=== PATIENT | female | born 1930 | race Caucasian/White ===

== ENCOUNTER 2017-03-24 16:10 | Inpatient (IN) | payer MEDICARE, OTHER ==
[2017-03-24] MEDS ORDERED: Ondansetron 4 MG Tab.DIS PO PRN (17:29)
[2017-03-24] MEDS ORDERED: Sodium Chloride 0.9% 10 ML Syringe FLUSH PRN (17:29)
[2017-03-24] MEDS: Lactated Ringers 1,000 ML IV SCH (18:02)
--- NOTE | 2017-03-24 18:11 | PCM.HP ---
H&P History of Present Illness - General Date of Service: 03/24/17 Admit Problem/Dx: Admission Diagnosis/Problem Admission Diagnosis/Problem Weakness of limb Source of Information: Patient, Family History Limitations: Reports: No limitations - History of Present Illness Initial Comments - Free Text/Narative: This is an 87-year-old female patient presented to our nurse practitioner today for right-sided weakness for about a week. She had a stroke in the past and had right-sided weakness. She fell over a week ago. She states she was walking with her walker in the bedroom. Her walker as wheels. She says her right arm became weak and she fell down and hit the back of her head. She was not evaluated. She denies headaches. Since then her daughter states she is weak and has increasing right leg and arm weakness. She has no nausea, vomiting no chest pain or shortness of breath. She's had a cough for 2 weeks without wheezing. She also has a pressure ulcer on her right ankle that is healing. 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 Cardiovascular History: Reports: Hypertension Gastrointestinal History: Reports: Chronic constipation, Chronic diarrhea Other Gastrointestinal History: alternates between constipation and diarhea bm on admission Genitourinary History: Reports: None PEST LOCATOR History: Reports: Musculoskeletal History: Reports: Other (see below) Other Musculoskeletal History: Weakness d/t Parkinsons right ankle pain due to arthritis small wound on inner right ankle causes pain and tenderness worse later in the day Neurological History: Reports: CVA, Parkinson's Other Neuro History: Hx rheumatic fever when a teenager Psychiatric History: Reports: Depression Immunologic History: Reports: None Oncologic (Cancer) History: Reports: None Dermatologic History: Reports: Other (see below) Other Dermatologic History: Ulcer on R ankle this ulcer present on adm m has had this for many months. ulcer is now a healed scab, it is nopt open but she does complain of pain in the area, no redness - Infectious Disease History Infectious Disease History: Reports: Chicken pox, Measles, Mumps, Rheumatic Fever Other Infectious Disease History: Hepatitis in High School, unknown what type. - Past Surgical History HEENT Surgical History: Reports: None Cardiovascular Surgical History: Reports: None GI Surgical History: Reports: None Neurological Surgical History: Reports: None Musculoskeletal Surgical History: Reports: None Social & Family History - Family History Family Medical History: Noncontributory - Tobacco Use Smoking Status *Q: Never Smoker Second Hand Smoke Exposure: No - Caffeine Use Caffeine Use: Reports: Coffee Other Caffeine Use: 2 cups coffee day - Alcohol Use Days Per Week of Alcohol Use: 4 Number of Drinks Per Day: 1 Total Drinks Per Week: 4 - Recreational Drug Use Recreational Drug Use: No - Living Situation & Occupation Living situation: Reports: Occupation: retired H&P Review of Systems - Review of Systems: Review Of Systems: See Below General: Reports: weakness. Denies: fever, chills, malaise HEENT: Reports: no symptoms Pulmonary: Reports: Cough. Denies: Shortness of Breath, Wheezing, Sputum, Hemoptysis Cardiovascular: Reports: no symptoms Gastrointestinal: Reports: No symptoms Genitourinary: Reports: no symptoms Musculoskeletal: Reports: other (Right arm and leg weakness) Skin: Reports: no symptoms Psychiatric: Reports: no symptoms Neurological: Reports: Difficulty Walking, Weakness, Gait Disturbance. Denies: Dizziness, Headache, Numbness, Trouble Speaking, Change in Speech Hematologic/Lymphatic: Reports: no symptoms Immunologic: Reports: no symptoms Exam - Exam Exam: See Below - Vital Signs Vital Signs: Last Vital Signs Temp 97.8 F 03/24/17 16:23 Pulse 69 03/24/17 16:23 Resp 20 03/24/17 16:23 BP 152/86 H 03/24/17 16:23 Pulse Ox 97 03/24/17 16:23 Weight: 120 lb 8 oz - Exam General: alert, oriented, cooperative HEENT: PERRLA, Conjunctiva clear, EACs clear, EOMI, Hearing intact, Mucosa moist & pink, Posterior pharynx clear, TMs clear Neck: supple, trachea midline. No: carotid bruit, JVD Lungs: Clear to auscultation, Normal respiratory effort Cardiovascular: regular rate, regular rhythm, normal S1, normal S2. No: systolic murmur, diastolic murmur Abdomen: normal bowel sounds, soft. No: organomegaly, guarding, rigidity, rebound, tenderness Back Exam: normal inspection Extremities: other (Right leg and arm weakness.) Skin: warm, intact Neurological: normal speech, normal tone Neuro Extensive - Mental Status: alert, normal mood/affect, normal cognition - Patient Data Lab Results last 24 hrs: Laboratory Results - last 24 hr 03/24/17 Range/Units 17:17 Urine Color Yellow (YELLOW) Urine Appearance Clear (CLEAR) Urine pH 5.0 (5.0-6.5) Ur Specific [place] 1.025 (1.010-1.025) Urine Protein Negative (NEGATIVE) mg/dL Urine Glucose (UA) Normal (NEGATIVE) mg/dL Urine Ketones Negative (NEGATIVE) mg/dL Urine Occult Blood Moderate H (NEGATIVE) Urine Nitrite Negative (NEGATIVE) Urine Bilirubin Negative (NEGATIVE) Urine Urobilinogen Normal (NEGATIVE) mg/dL Ur Leukocyte Esterase Moderate H (NEGATIVE) Urine RBC 10-20 H (0) Urine WBC 5-10 (0) Ur Squamous Epith Cells Few H (NS,R,O) Urine Bacteria Few H (NS) *Q Meaningful Use (ADM) - VTE *Q VTE Criteria *Q: - Stroke *Q Stroke Criteria *Q: - AMI *Q AMI Criteria *Q: - Problem List (1) Right-sided muscle weakness SNOMED Code(s): 227243955, 017477397 ICD Code: M62.81 - MUSCLE WEAKNESS (GENERALIZED) Status: Acute Current Visit: Yes (2) Right sided weakness SNOMED Code(s): 326422542 ICD Code: R53.1 - WEAKNESS Status: Acute Current Visit: Yes (3) Bronchitis SNOMED Code(s): 45805759 ICD Code: J40 - BRONCHITIS, NOT SPECIFIED ACUTE OR CHRONIC Status: Acute Current Visit: Yes (4) Dehydration SNOMED Code(s): 36148038 ICD Code: E86.0 - DEHYDRATION Status: Acute Priority: High Current Visit: No Onset Date: 04/15/15 Problem Details: IV fluids Problem List Initiated/Reviewed/Updated: Yes Orders Last 24hrs: Active Orders 24 hr Category Date Time Status Admission Status [Patient Status] [ADT] Routine ADT 03/24/17 16:15 Active Patient Status [ADT] Routine ADT 03/24/17 17:29 Active EKG Documentation Completion [RC] ASDIRECTED Care 03/24/17 17:34 Active Intake and Output [RC] 06,14,22 Care 03/24/17 17:30 Active May Shower [RC] ASDIRECTED Care 03/24/17 17:29 Active Oxygen Therapy [RC] PRN Care 03/24/17 17:29 Active Telemetry Monitoring [Cardiac Monitoring] [RC] .As Care 03/24/17 17:53 Active Directed Up With Assistance [RC] ASDIRECTED Care 03/24/17 17:29 Active VTE/DVT Education [RC] Per Unit Routine Care 03/24/17 17:29 Active Vital Signs [RC] 04,08,12,16,20,00 Care 03/24/17 17:29 Active OT Evaluation and Treatment [CONS] Routine Cons 03/24/17 17:29 Active PT Evaluation and Treatment [CONS] Routine Cons 03/24/17 17:29 Active Regular Diet [DIET] Diet 03/24/17 Dinner Active Head wo Cont [CT] Routine Exams 03/24/17 17:33 Ordered TROPONIN I [CHEM] Routine Lab 03/24/17 17:29 Ordered Enoxaparin [Lovenox] Med 03/24/17 17:30 Pending 30 mg SUBCUT DAILY Lactated Ringers [Ringers, Lactated] 1,000 ml Med 03/24/17 17:30 Active IV ASDIRECTED Ondansetron [Zofran ODT] Med 03/24/17 17:29 Active 4 mg PO Q4H PRN Sodium Chloride 0.9% [Saline Flush] Med 03/24/17 17:29 Active 10 ml FLUSH ASDIRECTED PRN Peripheral IV Insertion Adult [OM.PC] Routine Oth 03/24/17 17:29 Ordered Sequential Compression Device [OM.PC] Per Unit Routine Oth 03/24/17 17:30 Ordered Resuscitation Status Routine Resus Stat 03/24/17 17:29 Ordered EKG 12 Lead [EK] Stat Ther 03/24/17 17:34 Ordered Medication Orders Enoxaparin Sodium (Lovenox) 30 mg SUBCUT DAILY BRIAN Lactated Ringer's (Ringers, Lactated) 1,000 mls @ 125 mls/hr IV ASDIRECTED BRIAN Last Admin: 03/24/17 18:02 Dose: 125 mls/hr Ondansetron HCl (Zofran Odt) 4 mg PO Q4H PRN PRN Reason: nausea, able to take PO Sodium Chloride (Saline Flush) 10 ml FLUSH ASDIRECTED PRN PRN Reason: Keep Vein Open Last Admin: 03/24/17 18:02 Dose: 10 ml Assessment/Plan Comment:: 1. Admit for IV fluids to correct her sodium. 2. Discussed advanced directives. She wants to be DO NOT RESUSCITATE/DO NOT INTUBATE. 4. Check troponin, EKG, head CT. 5. I.'s and O.'s and daily weights. 6. Physical therapy and occupational therapy consult. 7. Okay to take all meds. A. Patient had a chest x-ray was reviewed by the nurse practitioner. She says it was normal I did not have an opportunity to review it. Wait for radiology interpretation. 9. Chem-12 was done. Abnormal scar glucose 126, BUN 34, creatinine 0.9, and CBC within normal limits. She was not able to urinate to get a UA today.
[2017-03-24] MEDS ORDERED: Azithromycin 500 MG in Sodium Chloride 0.9% 250 ML IV ONE ×2 (18:19→18:45)
[2017-03-24] MEDS ORDERED: Azithromycin 500 MG Vial ONE (18:32)
[2017-03-24] MEDS ORDERED: cefTRIAXone 1 GM in Sodium Chloride 0.9% 50 ML IV SCH ×6 (19:00→20:00)
[2017-03-24] MEDS ORDERED: Azithromycin 250 MG in Sodium Chloride 0.9% 250 ML IV SCH (19:00)
[2017-03-24] MEDS ORDERED: Sodium Chloride 0.9% 250 ML IV SCH (20:30)
[2017-03-24] MEDS ORDERED: Sodium Chloride 0.9% 50 ML ONE (20:34)
[2017-03-25] MEDS: Lactated Ringers 1,000 ML IV SCH ×2 (04:17→12:08)
[2017-03-25] MEDS ORDERED: hydrOXYzine HCl 25 MG Tab PO PRN (11:32)
[2017-03-25] MEDS ORDERED: ROPINIROLE 4 MG PO SCH (11:45)
--- NOTE | 2017-03-25 12:44 | PN ---
DATE SEEN: 03/25/2017 SUBJECTIVE: This 87-year-old, female with a previous history of Parkinson disease, remote history of intermittent atrial fibrillation; currently refuses anticoagulation therapy, previous CVA with right-sided weakness and restless legs syndrome, seen today for followup. She was admitted yesterday with increased weakness, and fatigue. She had a chest x-ray that showed possible infiltrate in the left lower lobe, but was a PA projection with poor inspiration. She had had a remote history of fall and concerns about the possibility of a new CVA were discussed. The CT scan of her head was ordered, but thus far has not been done, there have been some mechanical problems with the machine. She says this morning, she still is weak; but denies any headache; has had no neck pain. Denies any cough, shortness of breath, or palpitations. She has no nausea or vomiting. Denies any abdominal discomfort, dysuria, or hematuria. She says her legs are quite weak. She thinks more so on the left than on the right. The nurses did get her up to go to the bathroom. She is quite weak and requires assist of two. She said her appetite has not changed. MEDICATIONS: Her medications were reviewed. ALLERGIES: Reviewed. OBJECTIVE: GENERAL: She appears to be at this time in no acute distress. VITAL SIGNS: Afebrile. Blood pressure 154/83, pulse is 72, and at this time regular, respirations are 18, and O2 saturation on room air is 98%. HEENT: Unremarkable. There was no jugular venous distention while sitting upright. CHEST: Clear. No wheezes, rales, rhonchi, or retractions are noted. CARDIOVASCULAR: Revealed a normal S1 and S2 with a regular rhythm at this time. There is no murmur, rub, or gallop. ABDOMEN: Soft. There is no specific point tenderness. No rebound or rigidity. Bowel sounds are normal. EXTREMITIES: Without clubbing, just a trace to 1+ edema is noted about both ankles. She has a healing superficial ulceration on the lateral malleolus of the right ankle and has significant onychomycosis of the right great toenail. She has little amount of onychomycosis on 2 toenails on the left long and the 4th toenail, but it is minimal. No ulcerations or areas of breakdown were noted there. She seems to have significant weakness in the left lower extremity specially when trying to raise the leg. She is able to dorsiflex and plantarflex the ankle and Babinski were downgoing bilaterally. She has good upper extremity strength bilaterally with no evidence of focal weakness there and there was no defects noted in her cranial nerves. LABORATORY DATA: CBC done yesterday showed a hemoglobin of 13.4, hematocrit 41.2, white count 5200 with a normal differential. Her comprehensive panel was unremarkable except for a slight elevation in non fasting glucose 126. Sodium 141, potassium of 3.9, her creatinine was 0.9, and BUN was 34 showing mild dehydration. Liver functions were all within normal limits. Urinalysis yesterday revealed a specific gravity 1.025. There was a moderate amount of occult blood with a moderate amount of leukocyte esterase, 10 to 20 rbc and 5 to 10 wbc, just a few squamous epithelial cells and a few bacteria were noted. Initial troponin was less than 0.01. 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 No acute ST-T segment changes indicative of ischemia were identified. IMPRESSION: 1. Progressive weakness of undetermined etiology, rule out another cerebrovascular accident or possibly intracranial bleeding from the recent fall. 2. Parkinson disease, currently doing well. 3. History of restless legs syndrome. 4. Previous history of depression. PLAN: Await the results of her CT scan. We will get PT/OT involved and we will continue the IV antibiotics with a repeat chest x-ray today to make sure there is no pneumonia if that is not the case, we will discontinue that. We will follow from there. /[id number] /MODL
--- NOTE | 2017-03-25 14:57 | CR ---
INDICATION: Weakness. CHEST: PA and lateral views of the chest 03/25/2017 were compared with 2014 and 02/20/2014, revealing the heart to be enlarged in general with very tortuous calcified aorta. A severe dextroconcave scoliosis at the thoracolumbar spine is again noted. Somewhat demineralized bony structures suggest osteoporosis additionally. Overlying snaps and overlying EKG leads are noted. A definite active infiltrate or effusion was not identified. Slightly elevated right hemidiaphragm is again noted, most likely an anatomic finding. Only minimal blunting of the costophrenic angle is noted on the right, similar to the most recent previous study and likely is on the basis of minimal fibrosis. IMPRESSION: Stable chest compared with 2014. No definite acute process - multiple findings as noted above. MTDD
--- NOTE | 2017-03-25 16:55 | CT ---
INDICATION: Left-sided weakness. Fell last week, hit back left side of head. CT HEAD WITHOUT CONTRAST: Serial contiguous 2.5 and 5-mm sections were obtained through the brain without contrast and compared with 02/27/2014 and examinations, revealing slightly smaller low-density abnormality in the frontoparietal area on the right, compatible with mature thrombotic CVA in that area. Lacunar infarct is noted at the left caudate nucleus. Some patchy white matter changes are noted which are likely on the basis of microvascular disease. Heavy calcifications are noted in the vertebral, basilar, and internal carotid arteries. Total Exam DLP = 949.36 mGy-cm. No shift of midline structures was identified. The ventricles are slightly prominent, compatible with central atrophy. Cortical sulci are also prominent, compatible with central atrophy, as previously. Very little progression is suggested. No definite acute intracranial abnormality was identified - no bleeding site or hematoma was seen - no other abnormal areas of density were suggested. Paranasal sinuses and mastoid air cells appear to be well aerated. No definite cranial abnormality was seen. IMPRESSION: 1. No acute intracranial abnormality. 2. Heavily calcified intracranial arteries, compatible with cerebrovascular disease. 3. Microvascular disease of mild degree. 4. 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 5. Generalized atrophy, relatively mild and similar to the previous study of 2013. Report was called to Dr. Cates at 1624 hours, 03/25/2017. [facility]
[2017-03-25] MEDS ORDERED: Enoxaparin 30 MG/0.3 ML Syringe SUBCUT SCH (17:00)
[2017-03-25] MEDS: Lisinopril 5 MG Tab PO SCH (17:27)
[2017-03-25] MEDS: Enoxaparin 30 MG/0.3 ML Syringe SUBCUT SCH (17:27)
[2017-03-25] MEDS ORDERED: Azithromycin 250 MG in Sodium Chloride 0.9% 250 ML IV SCH (18:00)
[2017-03-25] MEDS: Mirtazapine 15 MG Tab PO SCH (20:01)
[2017-03-25] MEDS: rOPINIRole 1 MG Tab PO SCH (20:02)
[2017-03-26] MEDS: Lisinopril 5 MG Tab PO SCH (09:01)
[2017-03-26] MEDS: ROPINIROLE HCL 4 MG PO SCH (09:02)
--- NOTE | 2017-03-26 12:00 | PN ---
DATE SEEN: 03/26/2017 SUBJECTIVE: This is an 87-year-old female with a previous history of Parkinson disease, previous CVA, presumably secondary to intermittent atrial fibrillation and restless legs syndrome; was seen today for followup. She had a CT scan of her head yesterday after the machine was fixed. No new infarcts or abnormalities were identified. She has evidence of an old right parietal infarct. She was evaluated by PT and OT, both of whom felt that she would improve with therapy and have initiated that. She says she slept well and has had no difficulties. She has been eating well without difficulties. She denies any headaches or blurred vision, numbness or tingling of any extremity, no cough and no chest pain. Denies any dysuria or hematuria. She is able to get up to the bathroom with assistance of one and use of her walker. She did have some elevated blood pressures yesterday and at the end of the day, we decided to go ahead and initiate lisinopril 5 mg p.o. daily. She has tolerated that well, and her blood pressure has improved nicely with it. Her other medications were reviewed and allergies were reviewed, all of which are accurate. OBJECTIVE: GENERAL: She appears to be comfortable sitting in her chair today in no acute distress. VITAL SIGNS: Afebrile. Blood pressure 138/75, pulse is 65 and regular, O2 saturation is 97% on room air with a respiratory rate of 18 to 20. HEENT: Unremarkable, except for the blindness noted in the right eye. NECK: Supple. There is no jugular venous distention. MUSCULOSKELETAL: She has significant kyphoscoliosis of her back without spinous process tenderness. CHEST: Clear to auscultation and percussion. CARDIOVASCULAR: A regular rhythm without murmur, rub, or gallop noted at this time. ABDOMEN: Soft and nontender without organomegaly or masses. EXTREMITIES: Showed no clubbing, just a trace edema. Left-sided weakness was noted, especially in the left lower leg, with some generalized weakness throughout, especially in the lower extremities. The upper extremities seemed to be better. Movement is quite slow, shuffling gait with short cropped steps, bent forward. Otherwise, was unremarkable. IMPRESSION: 1. Increased weakness with gradual deterioration, presumably secondary to her Parkinson disease and a recent fall with no evidence of new acute intercerebral abnormalities. 2. Restless legs syndrome. PLAN: A urine culture was obtained as she did show some mild pyuria, but thus far shows no growth. We will continue PT/OT and, according to nursing, the family has talked about the patient being placed in a [facility] setting. General Forecaster knows about this and will be working on it. We will proceed from there. /[id number] /MELL
[2017-03-26] MEDS: Enoxaparin 30 MG/0.3 ML Syringe SUBCUT SCH (17:33)
[2017-03-26] MEDS: rOPINIRole 1 MG Tab PO SCH (21:09)
[2017-03-26] MEDS: Mirtazapine 15 MG Tab PO SCH (21:09)
[2017-03-27] MEDS: ROPINIROLE HCL 4 MG PO SCH (09:18)
[2017-03-27] MEDS: Lisinopril 2.5 MG Tab PO SCH (09:28)
--- NOTE | 2017-03-27 11:51 | PN ---
DATE SEEN: 03/27/2017 SUBJECTIVE: This is an 87-year-old female with a history of Parkinson disease and previous CVA, seen today for followup. She continues to remain the same. She says she is tired, but has had no other difficulties. Denies any headaches or blurred vision. Appetite has been good. She slept well. Her medications were reviewed. Allergies were reviewed, all of which were accurate. OBJECTIVE: GENERAL: She is sitting comfortably in no acute distress. VITAL SIGNS: Her blood pressure throughout yesterday was in the 120 to 130 range systolic, but sometimes, it will drop into the 90s. Diastolics have been in the 50 to 70 range. HEENT: Unremarkable. CHEST: Clear. BACK: Significant kyphoscoliosis. CARDIOVASCULAR: Reveals a regular rhythm without murmur, rub, or gallop. ABDOMEN: Unremarkable. EXTREMITIES: Unremarkable except for left- sided weakness, especially in the left leg with short hesitant steps, forward leaning, but no cogwheel rigidity was noted. IMPRESSION: 1. Labile hypertension. 2. Parkinson disease with increased weakness. 3. Previous history of right cerebrovascular accident with left-sided weakness. 4. Restless legs syndrome. PLAN: We discussed options, and at this point, we will make no changes. Her urine culture thus far has shown no growth, so we will not add any antibiotic. I am going to reduce her lisinopril to 2.5 mg daily as her blood pressure sometimes drops significantly, and I am sure it is secondary to the Parkinson disease. PT will continue to work with her, and it looks as though [facility] placement is going to be the way the family would like to go. /[id number] /MODL
[2017-03-27] MEDS: Enoxaparin 30 MG/0.3 ML Syringe SUBCUT SCH (16:41)
[2017-03-27] MEDS: rOPINIRole 1 MG Tab PO SCH (21:44)
[2017-03-27] MEDS: Mirtazapine 15 MG Tab PO SCH (21:45)
[2017-03-28] MEDS: ROPINIROLE HCL 4 MG PO SCH (08:14)
[2017-03-28] MEDS: Lisinopril 2.5 MG Tab PO SCH (08:18)
--- NOTE | 2017-03-28 13:04 | PN ---
DATE SEEN: 03/28/2017 SUBJECTIVE: Sarah is seen today for followup. She actually continues to do well. Her appetite has been good. She slept well. She has no complaints or concerns. Weakness is still a problem. She needs the assist of 1 and her wheelchair and walker most of the time when getting to and from the bathroom. She also was walking with the assistance of 1. No falls have been noted. OBJECTIVE: GENERAL: She appears to be quite comfortable, in no acute distress. VITAL SIGNS: Afebrile. Blood pressure is still somewhat labile, 109/61 early this morning, 158/94 later this morning. Pulse is 76 and regular. Respirations were 16 and unlabored. O2 saturation is 99%. HEENT: Unremarkable. NECK: Thyroid was not enlarged. CHEST: Clear. BACK: Significant kyphoscoliosis without spinous process tenderness. CARDIOVASCULAR: Revealed a normal S1 and S2 without murmur, rub, or gallop. ABDOMEN: Soft. No palpable masses. No tenderness. EXTREMITIES: Without clubbing. No edema was identified. The weakness noted previously is unchanged. IMPRESSION: Parkinson disease with a previous history of right parietal cerebrovascular accident and resultant left-sided weakness, restless legs syndrome, mild labile hypertension. PLAN: PT/OT is continuing to see her and feel like she can be a good candidate for rehab. We are awaiting [employer] Card Press Operator and family decision regarding [facility]. We will continue to adjust her lisinopril in hopes of getting her blood pressure under fair control without significant hypotension and will follow from there. /[id number] 1251 /KIM
[2017-03-28] MEDS: Enoxaparin 30 MG/0.3 ML Syringe SUBCUT SCH (16:45)
[2017-03-28] MEDS: rOPINIRole 1 MG Tab PO SCH (20:28)
[2017-03-28] MEDS: Mirtazapine 15 MG Tab PO SCH (20:28)
[2017-03-29 07:21] VITALS: BP 147/78
[2017-03-29] MEDS: ROPINIROLE HCL 4 MG PO SCH (08:53)
[2017-03-29] MEDS: Lisinopril 2.5 MG Tab PO SCH (08:54)
--- NOTE | 2017-03-29 12:24 | PN ---
DATE SEEN: 03/29/2017 SUBJECTIVE: This 87-year-old female with a history of Parkinson disease, mild depression, and previous CVA, seen today for followup. Continues to do well. Does require assistance with activities, but is sleeping and eating well. Has no other complaints or concerns other than the generalized weakness. PTOT has been following her and they feel she is a candidate for strengthening and rehab. group home application has been placed, but I just found out that they are rejecting her as they feel she will be too short-term. Therefore, [facility] was recommended. This is being discussed with the family and they have essentially agreed, the patient also agrees. OBJECTIVE: GENERAL: She appears to be comfortable, in no acute distress. VITAL SIGNS: Afebrile. Blood pressure 147/78, pulse is 66 and regular, respirations are 14 and unlabored, O2 saturations 94% on room air. HEENT: Unremarkable except for a slightly flat facies. Thyroid was not enlarged. CHEST: Clear. BACK: Had a significant kyphoscoliosis, but no spinous process tenderness. CARDIOVASCULAR: Unremarkable with a regular rhythm. ABDOMEN: Unremarkable. EXTREMITIES: Without clubbing. No edema other than some mild left-sided weakness of the left lower extremity. Maybe a little bit in the left upper extremity, was otherwise negative. IMPRESSION: 1. Previous right cerebrovascular accident with left-sided weakness. 2. Parkinson disease. 3. History of depression. PLAN: The patient will be discharged to [facility] today, and will continue therapy from there. I had talked to the patient and her family about the possibility of admission thereafter to the basic care facility. I will make a decision on that in the near future. /[id number] /MELL
--- NOTE | 2017-03-29 14:21 | DISCH ---
DISCHARGE DATE: 03/29/2017 REASON FOR ADMISSION: An 87-year-old female with a longstanding history of atrial fibrillation, previous right CVA with resultant left-sided weakness, Parkinson disease, and restless legs syndrome was admitted with increasing weakness and recurrent falls at home, had been gradually progressing over the last week, and her daughter who had been taking care of her said she just was not able to do so as she was so weak. She was evaluated in the clinic and lab work was unremarkable but because of persistent weakness, she was sent over to the hospital where she was evaluated and admitted. Her medications are documented in the H and P as are the allergies. Please see a copy of the H and P for exam and further evaluation. She had a urinalysis done here that showed 10-20 rbc's and 5-10 wbc's. Troponin was less than 0.01. Her chemistry panel done at the clinic was negative, her chest x-ray was negative, and her CBC was unremarkable. HOSPITAL COURSE: The patient was admitted. Because of the weakness, PT/OT was consulted and initially she was treated with gentle hydration with IV fluids as she appeared to be mildly dehydrated. Her blood pressure became quite labile and at times would go to systolics well over 180 and diastolics in the 110-120 range. We initially started lisinopril 5 mg daily, but then her blood pressure would drop with systolics in the 90s. We cut her lisinopril to 2.5 mg daily and actually has stabilized her blood pressure quite well. We continued her Requip extended release in the morning and 1 mg at night for restless legs. PT/OT did find significant left-sided weakness from her previous CVA and started rehab immediately. IV was discontinued as her hydration improved and she began eating and drinking better. She was sleeping well and up and about. Initially, she required one person to be with her all the time even to get to the bathroom, but then it gradually improved and now has been improving her strength enough so that she is able to get up to the bathroom and is walking behind a wheelchair. Her daughter did not feel she could safely take her home and PT and OT both felt that she would require further therapy. An application to the group home was made, but unfortunately they felt she was too short-term for them, so she would be transferred to swing bed where she will continue therapy until stronger and then depending on the home situation will either be discharged there or sent to a basic care unit. FINAL DIAGNOSES: Progressive weakness and falls secondary to previous right cerebrovascular accident with left-sided upper extremity weakness and her Parkinson disease, previous history of atrial fibrillation with controlled ventricular rate, labile hypertension, and chronic constipation. DISCHARGE MEDICATIONS: Lisinopril 2.5 mg daily, mirtazapine 45 mg at bedtime, hydroxyzine 25 mg p.o. q.4-6 hours p.r.n. for itching, Requip in the extended release form 12 mg daily, and Requip 1 mg at bedtime. DISCHARGE DIET: As tolerated. DISCHARGE DISPOSITION: She will be discharged back to swing bed status where she will continue PT and OT and follow from there. /[id number] /KIM
== END 2017-03-29 12:45 | disposition swing bed (61) | DRG 57 ==
LOC: FB.MS 16:10
PROVIDERS: ADMIT Family Medicine; ATTEND Family Medicine
DX: G20 Parkinson's disease (principal); I69.951 Hemiplegia and hemiparesis following unspecified cerebrovascular disease affecting right dominant side; R53.1 Weakness; E86.0 Dehydration; R09.89 Other specified symptoms and signs involving the circulatory and respiratory systems; Z66 Do not resuscitate; G25.81 Restless legs syndrome; Z86.79 Personal history of other diseases of the circulatory system; Z91.81 History of falling; F32.9 Major depressive disorder, single episode, unspecified; K59.09 Other constipation; H54.7 Unspecified visual loss; H54.41 Blindness, right eye, normal vision left eye; B35.1 Tinea unguium; J40 Bronchitis, not specified as acute or chronic
CPT/HCPCS: 36415; 70450; 71020; 81001; 84484; 87086; 93005; 97110-GP; 97116-GP; 97162-GP; 97165-GO; 97530-GO-KX; 97535-GO; A9270-GY; J0456; J0696; J1650; J7050; J7120

== ENCOUNTER 2017-03-29 12:45 | Inpatient (IN) | payer MEDICARE, OTHER ==
[2017-03-29] MEDS ORDERED: hydrOXYzine HCl 25 MG Tab PO PRN (13:22)
[2017-03-29] MEDS: rOPINIRole 1 MG Tab PO SCH (21:08)
[2017-03-29] MEDS: Mirtazapine 15 MG Tab PO SCH (21:08)
[2017-03-30] MEDS: Cholecalciferol (Vitamin D3) 1,000 Unit Tab PO SCH (08:32)
[2017-03-30] MEDS: Lisinopril 2.5 MG Tab PO SCH (08:32)
[2017-03-30] MEDS: ROPINIROLE HCL 4 MG PO SCH (08:32)
[2017-03-30] MEDS: Acetaminophen 325 MG Tab PO PRN ×2 (12:14→20:04)
[2017-03-30] MEDS: Mirtazapine 15 MG Tab PO SCH (20:01)
[2017-03-30] MEDS: rOPINIRole 1 MG Tab PO SCH (20:01)
[2017-03-31] MEDS: Acetaminophen 325 MG Tab PO PRN ×3 (09:01→17:41)
[2017-03-31] MEDS: ROPINIROLE HCL 4 MG PO SCH (09:03)
[2017-03-31] MEDS: Lisinopril 2.5 MG Tab PO SCH (09:03)
[2017-03-31] MEDS: Cholecalciferol (Vitamin D3) 1,000 Unit Tab PO SCH (09:04)
--- NOTE | 2017-03-31 16:31 | CR ---
INDICATION: Left shoulder pain. Worse with movement. No history of trauma. LEFT SHOULDER: Four views of the left shoulder revealed diminished bone density overall, with relatively prominent decreased bone density at the metaphysis of the humerus, mostly laterally, but also anteriorly. This appearance is also seen on the right and is likely on the basis of osteoporosis and muscle attachments. An acute fracture or dislocation was not identified. No significant appearing arthritic change is seen. The right shoulder was obtained in two projections for comparison. IMPRESSION: Osteoporosis, only very minimal osteoarthritis. If an occult soft tissue abnormality is suspected clinically, MRI may be helpful for further evaluation, as felt to be clinically necessary. TANISHAD
[2017-03-31] MEDS: Mirtazapine 15 MG Tab PO SCH (20:47)
[2017-03-31] MEDS: rOPINIRole 1 MG Tab PO SCH (20:47)
[2017-04-01] MEDS: Acetaminophen 325 MG Tab PO PRN ×4 (05:13→20:18)
[2017-04-01] MEDS: ROPINIROLE HCL 4 MG PO SCH (09:09)
[2017-04-01] MEDS: Cholecalciferol (Vitamin D3) 1,000 Unit Tab PO SCH (09:09)
[2017-04-01] MEDS: Lisinopril 2.5 MG Tab PO SCH (13:03)
[2017-04-01] MEDS: rOPINIRole 1 MG Tab PO SCH (20:18)
[2017-04-01] MEDS: Mirtazapine 15 MG Tab PO SCH (20:18)
[2017-04-02] MEDS: Acetaminophen 325 MG Tab PO PRN ×2 (00:31→20:50)
[2017-04-02] MEDS: Cholecalciferol (Vitamin D3) 1,000 Unit Tab PO SCH (08:47)
[2017-04-02] MEDS: ROPINIROLE HCL 4 MG PO SCH (08:48)
[2017-04-02] MEDS: Lisinopril 2.5 MG Tab PO SCH (08:48)
[2017-04-02] MEDS: rOPINIRole 1 MG Tab PO SCH (20:50)
[2017-04-02] MEDS: Mirtazapine 15 MG Tab PO SCH (20:50)
[2017-04-03] MEDS: Lisinopril 2.5 MG Tab PO SCH (08:34)
[2017-04-03] MEDS: Cholecalciferol (Vitamin D3) 1,000 Unit Tab PO SCH (08:34)
[2017-04-03] MEDS: ROPINIROLE HCL 4 MG PO SCH (08:34)
--- NOTE | 2017-04-03 08:36 | PCM.PN ---
- General Info Date of Service: 04/03/17 Admission Dx/Problem (Free Text): Patient states she is having left shoulder pain. Last 2 days is much better. X -ray showed arthritis. She denies chest pain, shortness of breath, fevers or chills. Overall she feels weak. She has worked with PT/OT. - Patient Data Vitals - most recent: Last Vital Signs Temp 97.4 F 04/02/17 08:43 Pulse 99 04/02/17 08:43 Resp 18 04/02/17 08:43 BP 124/74 04/03/17 08:34 Pulse Ox 94 L 04/02/17 08:43 Weight - most recent: 120 lb 8 oz I&O - last 24 hours: Intake & Output 04/02/17 04/03/17 04/03/17 22:59 06:59 14:59 Intake Total 300 Balance 300 Med Orders - Current: Current Medications Acetaminophen (Tylenol) 650 mg PO Q4H PRN PRN Reason: Pain Last Admin: 04/02/17 20:50 Dose: 650 mg Cholecalciferol (Vitamin D3) 1,000 units PO DAILY [facility] Last Admin: 04/03/17 08:34 Dose: 1,000 units Hydroxyzine HCl (Atarax) 25 mg PO Q4H PRN PRN Reason: Itching Lisinopril (Prinivil) 2.5 mg PO DAILY [facility] Last Admin: 04/03/17 08:34 Dose: 2.5 mg Mirtazapine (Remeron) 45 mg PO BEDTIME [facility] Last Admin: 04/02/17 20:50 Dose: 45 mg Ropinirole HCl (Requip Xl) 12 mg PO DAILY [facility] Last Admin: 04/03/17 08:34 Dose: 12 mg Ropinirole HCl (Requip) 1 mg PO BEDTIME [facility] Last Admin: 04/02/17 20:50 Dose: 1 mg - Exam General: alert, oriented, cooperative Neck: supple Lungs: Clear to auscultation, Normal respiratory effort. No: Crackles, Rales, Rhonchi Cardiovascular: Regular Rate, Regular Rhythm, No Murmurs Extremities: no edema Psy/Mental Status: alert, normal affect, normal mood - Problem List & Annotations (1) Afib, Chronic atrial fibrillation SNOMED Code(s): 630665400 Code(s): I48.2 - CHRONIC ATRIAL FIBRILLATION Status: Acute Current Visit : No Annotation/Comment:: Patient refuses anticoagulation (2) Falls SNOMED Code(s): 0510868 Code(s): W19.XXXA - UNSPECIFIED FALL, INITIAL ENCOUNTER Status: Acute Current Visit: No Annotation/Comment:: PT joshua thinks she may go home with home health.I aprreciate their input (3) Left-sided muscle weakness SNOMED Code(s): 516385188, 323147437 Code(s): M62.81 - MUSCLE WEAKNESS (GENERALIZED) Status: Acute Current Visit: No (4) Parkinson's disease SNOMED Code(s): 98506426 Code(s): G20 - PARKINSON'S DISEASE Status: Acute Current Visit: No Annotation/Comment:: Continue home meds PT for gait (5) Weakness due to cerebrovascular accident SNOMED Code(s): 06325241 Code(s): I63.9 - CEREBRAL INFARCTION, UNSPECIFIED; R53.1 - WEAKNESS Status : Acute Current Visit: No - Problem List Review Problem List Initiated/Reviewed/Updated: Yes - Plan Plan:: Continue PT/OT. Family meeting scheduled the next couple of days.
[2017-04-03] MEDS: rOPINIRole 1 MG Tab PO SCH (21:12)
[2017-04-03] MEDS: Mirtazapine 15 MG Tab PO SCH (21:12)
[2017-04-04] MEDS: ROPINIROLE HCL 4 MG PO SCH (09:42)
[2017-04-04] MEDS: Lisinopril 2.5 MG Tab PO SCH (09:42)
[2017-04-04] MEDS: Cholecalciferol (Vitamin D3) 1,000 Unit Tab PO SCH (09:43)
[2017-04-04] MEDS: rOPINIRole 1 MG Tab PO SCH (20:46)
[2017-04-04] MEDS: Mirtazapine 15 MG Tab PO SCH (20:46)
[2017-04-05 08:02] VITALS: BP 135/72
[2017-04-05] MEDS: Cholecalciferol (Vitamin D3) 1,000 Unit Tab PO SCH (08:05)
[2017-04-05] MEDS: ROPINIROLE HCL 4 MG PO SCH (08:05)
[2017-04-05] MEDS: Lisinopril 2.5 MG Tab PO SCH (08:05)
--- NOTE | 2017-04-05 08:36 | PCM.PN ---
- General Info Date of Service: 04/05/17 Admission Dx/Problem (Free Text): Patient without complaints. Denies chest pain, shortness of breath, weakness. - Patient Data Vitals - most recent: Last Vital Signs Temp 98.4 F 04/05/17 08:00 Pulse 75 04/03/17 07:38 Resp 18 04/05/17 08:00 BP 135/72 04/05/17 08:05 Pulse Ox 95 04/05/17 08:00 Weight - most recent: 120 lb 8 oz Med Orders - Current: Current Medications Acetaminophen (Tylenol) 650 mg PO Q4H PRN PRN Reason: Pain Last Admin: 04/02/17 20:50 Dose: 650 mg Cholecalciferol (Vitamin D3) 1,000 units PO DAILY [facility] Last Admin: 04/05/17 08:05 Dose: 1,000 units Hydroxyzine HCl (Atarax) 25 mg PO Q4H PRN PRN Reason: Itching Lisinopril (Prinivil) 2.5 mg PO DAILY [facility] Last Admin: 04/05/17 08:05 Dose: 2.5 mg Mirtazapine (Remeron) 45 mg PO BEDTIME [facility] Last Admin: 04/04/17 20:46 Dose: 45 mg Ropinirole HCl (Requip Xl) 12 mg PO DAILY [facility] Last Admin: 04/05/17 08:05 Dose: 12 mg Ropinirole HCl (Requip) 1 mg PO BEDTIME [facility] Last Admin: 04/04/17 20:46 Dose: 1 mg - Exam General: alert, oriented, cooperative Neck: supple Lungs: Clear to auscultation, Normal respiratory effort Cardiovascular: Regular Rate, Regular Rhythm, No Murmurs Extremities: no edema - Problem List & Annotations (1) Afib, Chronic atrial fibrillation SNOMED Code(s): 196544071 Code(s): I48.2 - CHRONIC ATRIAL FIBRILLATION Status: Acute Current Visit : No Annotation/Comment:: Patient refuses anticoagulation (2) Falls SNOMED Code(s): 2315751 Code(s): W19.XXXA - UNSPECIFIED FALL, INITIAL ENCOUNTER Status: Acute Current Visit: No Annotation/Comment:: PT joshua thinks she may go home with home health.I aprreciate their input (3) Left-sided muscle weakness SNOMED Code(s): 369196647, 827512835 Code(s): M62.81 - MUSCLE WEAKNESS (GENERALIZED) Status: Acute Current Visit: No (4) Parkinson's disease SNOMED Code(s): 86367986 Code(s): G20 - PARKINSON'S DISEASE Status: Acute Current Visit: No Annotation/Comment:: Continue home meds PT for gait (5) Weakness due to cerebrovascular accident SNOMED Code(s): 86699752 Code(s): I63.9 - CEREBRAL INFARCTION, UNSPECIFIED; R53.1 - WEAKNESS Status : Acute Current Visit: No - Problem List Review Problem List Initiated/Reviewed/Updated: Yes - Plan Plan:: 1. Discharge to home with PT/OT and home health. Patient needs strengthening at home, medical teaching and chronic illness teaching. Also a home assessment for safety.
--- NOTE | 2017-04-05 08:47 | PCM.DCSUM1 ---
Discharge Summary - Hospital Course Free Text/Narrative:: Hospital course-swing bed went well the patient with PT/OT. She had no real problems in continue to gain strength. Low signs stable she is afebrile. The daughter elected to take her home and take care of her. She'll go on a PT/OT plus home health. Brief History: This is an 87-year-old female patient presented to our nurse practitioner today for right-sided weakness for about a week. She had a stroke in the past and had right-sided weakness. She fell over a week ago. She states she was walking with her walker in the bedroom. Her walker as wheels. She says her right arm became weak and she fell down and hit the back of her head. She was not evaluated. She denies headaches. Since then her daughter states she is weak and has increasing right leg and arm weakness. She has no nausea, vomiting no chest pain or shortness of breath. She's had a cough for 2 weeks without wheezing. She also has a pressure ulcer on her right ankle that is healing. - Discharge Data Discharge Date: 04/05/17 Discharge Disposition: Home, W Home Health Agency 06 Condition: Fair - Discharge Diagnosis/Problem(s) (1) Afib, Chronic atrial fibrillation SNOMED Code(s): 910892616 ICD Code: I48.2 - CHRONIC ATRIAL FIBRILLATION Status: Acute Current Visit : No Problem Details: Patient refuses anticoagulation (2) Falls SNOMED Code(s): 8374862 ICD Code: W19.XXXA - UNSPECIFIED FALL, INITIAL ENCOUNTER Status: Acute Current Visit: No Problem Details: PT joshua thinks she may go home with home health.I aprreciate their input (3) Left-sided muscle weakness SNOMED Code(s): 527153527, 200939649 ICD Code: M62.81 - MUSCLE WEAKNESS (GENERALIZED) Status: Acute Current Visit: No (4) Parkinson's disease SNOMED Code(s): 90292649 ICD Code: G20 - PARKINSON'S DISEASE Status: Acute Current Visit: No Problem Details: Continue home meds PT for gait (5) Weakness due to cerebrovascular accident SNOMED Code(s): 14454322 ICD Code: I63.9 - CEREBRAL INFARCTION, UNSPECIFIED; R53.1 - WEAKNESS Status : Acute Current Visit: No - Patient Summary/Data Consults: Consultations 03/29/17 13:23 OT Evaluation and Treatment [CONS] Routine Please Evaluate and Treat. OT Reason for Consult: ADL's This query below is only for informational purposes and is not editable. Admission Diagnosis/Problem: Weakness PT Evaluation and Treatment [CONS] Routine Please Evaluate and Treat. PT Reason for Consult: Strengthening This query below is only for informational purposes and is not editable. Admission Diagnosis/Problem: Weakness - Patient Instructions Diet: Regular Diet as Tolerated Activity: As Tolerated Driving: Do Not Drive Showering/Bathing: May Shower Notify Provider of: Fever, Increased Pain, Nausea and/or Vomiting Other/Special Instructions: 1. Recheck with Gely Zamora in 7-10 days. 2. Home health, PT/OT in regards to strengthening, ADLs, and chronic disease teaching, medication management, home safety. - Discharge Plan Home Medications: Home Meds Cholecalciferol (Vitamin D3) [Vitamin D3] 1,000 units PO DAILY 03/25/17 [History ] Mirtazapine 45 mg PO BEDTIME 03/25/17 [History] hydrOXYzine HCl [hydrOXYzine] 25 mg PO Q4H PRN 03/25/17 [History] rOPINIRole HCl [Ropinirole ER] 12 mg PO DAILY 03/25/17 [History] rOPINIRole [Requip] 1 mg PO BEDTIME 03/25/17 [History] Lisinopril [Prinivil] 2.5 mg PO DAILY tablet 03/29/17 [Rx] - Discharge Summary/Plan Comment DC Time >30 min.: No - Patient Data Vitals - Most Recent: Last Vital Signs Temp 98.4 F 04/05/17 08:00 Pulse 75 04/03/17 07:38 Resp 18 04/05/17 08:00 BP 135/72 04/05/17 08:05 Pulse Ox 95 04/05/17 08:00 Weight - Most Recent: 120 lb 8 oz Med Orders - Current: Current Medications Acetaminophen (Tylenol) 650 mg PO Q4H PRN PRN Reason: Pain Last Admin: 04/02/17 20:50 Dose: 650 mg Cholecalciferol (Vitamin D3) 1,000 units PO DAILY [facility] Last Admin: 04/05/17 08:05 Dose: 1,000 units Hydroxyzine HCl (Atarax) 25 mg PO Q4H PRN PRN Reason: Itching Lisinopril (Prinivil) 2.5 mg PO DAILY [facility] Last Admin: 04/05/17 08:05 Dose: 2.5 mg Mirtazapine (Remeron) 45 mg PO BEDTIME [facility] Last Admin: 04/04/17 20:46 Dose: 45 mg Ropinirole HCl (Requip Xl) 12 mg PO DAILY [facility] Last Admin: 04/05/17 08:05 Dose: 12 mg Ropinirole HCl (Requip) 1 mg PO BEDTIME [facility] Last Admin: 04/04/17 20:46 Dose: 1 mg *Q Meaningful Use (DIS) - VTE *Q VTE Criteria *Q: VTE Mechanical Contraindications *Q: At Risk for Falls - Stroke *Q Stroke Criteria *Q: - AMI *Q AMI Criteria *Q:
== END 2017-04-05 11:20 | disposition home health service (06) | DRG 948 ==
LOC: FB.MS 12:45
PROVIDERS: ADMIT Family Medicine; ATTEND Family Medicine
DX: R53.1 Weakness (principal); I69.954 Hemiplegia and hemiparesis following unspecified cerebrovascular disease affecting left non-dominant side; G20 Parkinson's disease; I48.2 Chronic atrial fibrillation; M19.012 Primary osteoarthritis, left shoulder; G25.81 Restless legs syndrome; I10 Essential (primary) hypertension; R29.6 Repeated falls; H54.41 Blindness, right eye, normal vision left eye; Z87.898 Personal history of other specified conditions; Z66 Do not resuscitate; I69.998 Other sequelae following unspecified cerebrovascular disease
CPT/HCPCS: 73030-LT; 97110-GO; 97110-GP; 97116-GP; 97530-GO; 97530-GO-KX; 97535-GO; A9270-GY

== ENCOUNTER 2017-05-10 15:43 | Inpatient (IN) | payer MEDICARE, OTHER ==
[2017-05-10] MEDS ORDERED: Ondansetron 4 MG Tab.DIS PO PRN (16:32)
[2017-05-10] MEDS ORDERED: Sodium Chloride 0.9% 10 ML Syringe FLUSH PRN (16:32)
[2017-05-10] MEDS ORDERED: hydrOXYzine HCl 25 MG Tab PO PRN (16:38)
[2017-05-10] MEDS: Sodium Chloride 0.9% 1,000 ML IV SCH (17:47)
[2017-05-10] MEDS ORDERED: Enoxaparin 40 MG/0.4 ML Syringe SUBCUT SCH (18:45)
--- NOTE | 2017-05-10 19:03 | PCM.HP ---
H&P History of Present Illness - General Date of Service: 05/10/17 Admit Problem/Dx: Admission Diagnosis/Problem Admission Diagnosis/Problem Dehydration Source of Information: Patient, Family History Limitations: Reports: No Limitations - History of Present Illness Initial Comments - Free Text/Narative: This is an 87-year-old female patient was brought to the clinic by her daughter she lives within [facility]. She states the patient cannot walk anymore and she can handle her at home. She's had diarrhea for about 10 days was getting better and now got worse again. She's not eating or drinking very well according to the daughter. The patient says she is eating and drinking fine. The patient states she can't walk anymore and this new finding. She's generally weak. No lateralizing weakness. She denies runny nose, sore throat, cough, shortness of breath, chest pain, nausea, vomiting. She has some abdominal cramping. - Related Data Allergies/Adverse Reactions: Allergies Allergy/AdvReac Type Severity Reaction Status Date / Time No Known Allergies Allergy Verified 05/10/17 17:04 Home Medications: Home Meds Mirtazapine 45 mg PO BEDTIME 03/25/17 [History] hydrOXYzine HCl [hydrOXYzine] 25 mg PO Q4H PRN 03/25/17 [History] rOPINIRole HCl [Ropinirole ER] 12 mg PO DAILY 03/25/17 [History] rOPINIRole [Requip] 1 mg PO BEDTIME 03/25/17 [History] Melatonin/Pyridoxine HCl (B6) [Melatonin 3 mg Tablet] 10 mg PO BEDTIME 05/10/17 [History] Past Medical History HEENT History: Reports: Cataract, Impaired Vision, Other (See Below) Other HEENT History: 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, cataract removed from left eye Cardiovascular History: Reports: Afib, Heart Failure, Hypertension, SOB on Exertion Respiratory History: Reports: SOB Gastrointestinal History: Reports: Chronic Constipation, Chronic Diarrhea Other Gastrointestinal History: alternates between constipation and diarhea Genitourinary History: Reports: None PHOTO TECHNOLOGIST History: Reports: Musculoskeletal History: Reports: Other (See Below) Other Musculoskeletal History: gen arthritis, neck,back,shoulder Neurological History: Reports: CVA, Parkinson's Other Neuro History: Hx rheumatic fever when a teenager Psychiatric History: Reports: Depression Immunologic History: Reports: None Oncologic (Cancer) History: Reports: None Dermatologic History: Reports: Other (See Below) Other Dermatologic History: gen itchy - Infectious Disease History Infectious Disease History: Reports: Chicken Pox, Measles, Mumps, Rheumatic Fever Other Infectious Disease History: Hepatitis in High School, unknown what type. - Past Surgical History HEENT Surgical History: Reports: Cataract Surgery Cardiovascular Surgical History: Reports: None Respiratory Surgical History: Reports: None Neurological Surgical History: Reports: None Social & Family History - Family History Family Medical History: Noncontributory - Tobacco Use Smoking Status *Q: Never Smoker Second Hand Smoke Exposure: No - Caffeine Use Caffeine Use: Reports: Coffee Other Caffeine Use: 2 cups Qam - Alcohol Use Days Per Week of Alcohol Use: 4 Number of Drinks Per Day: 1 Total Drinks Per Week: 4 - Recreational Drug Use Recreational Drug Use: No - Living Situation & Occupation Living situation: Reports: Occupation: Retired H&P Review of Systems - Review of Systems: Review Of Systems: See Below General: Reports: Weakness Pulmonary: Reports: No Symptoms Cardiovascular: Reports: No Symptoms Gastrointestinal: Reports: Abdominal Pain, Diarrhea. Denies: Bloody Stool Genitourinary: Reports: No Symptoms Musculoskeletal: Reports: Back Pain Skin: Reports: No Symptoms Psychiatric: Reports: Depression (Mild) Neurological: Reports: No Symptoms Hematologic/Lymphatic: Reports: No Symptoms Immunologic: Reports: No Symptoms Exam - Exam Exam: See Below - Vital Signs Vital Signs: Last Vital Signs Temp 97.8 F 05/10/17 16:11 Pulse 77 05/10/17 16:11 Resp 16 05/10/17 16:11 BP 139/89 05/10/17 16:11 Pulse Ox 95 05/10/17 16:11 Weight: 123 lb 8 oz - Exam General: Alert, Oriented, Cooperative HEENT: Hearing Intact, Posterior Pharynx Clear, TMs Clear Neck: Supple, Trachea Midline. No: Carotid Bruit, JVD Lungs: Clear to Auscultation, Decreased Breath Sounds. No: Crackles, Rales, Rhonchi Cardiovascular: Regular Rate, Regular Rhythm. No: Systolic Murmur, Diastolic Murmur Abdomen: Normal Bowel Sounds, Soft. No: Peritoneal Signs, Distention, Guarding Back Exam: Normal Inspection Extremities: Normal Inspection Neurological: Strength Equal Bilateral (But weak), Normal Tone Neuro Extensive - Mental Status: Alert, Oriented x3, Normal Mood/Affect, Normal Cognition, Memory Intact Neuro Extensive - Motor, Sensory, Reflexes: No: Normal Gait - Patient Data Lab Results Last 24 hrs: Laboratory Results - last 24 hr 05/10/17 05/10/17 05/10/17 Range/Units 17:10 17:10 17:10 WBC 5.4 (4.5-12.0) X10-3/uL RBC 4.28 (3.23-5.20) x10(6)uL Hgb 12.7 (11.5-15.5) g/dL Hct 38.8 (30.0-51.3) % MCV 90.6 (80-96) fL MCH 29.8 (27.7-33.6) pg MCHC 32.8 (32.2-35.4) g/dL RDW 12.8 (11.5-15.5) % Plt Count 214 (125-369) X10(3)uL MPV 7.2 L (7.4-10.4) fL Neut % (Auto) 67.8 (46-82) % Lymph % (Auto) 16.0 (13-37) % [place] % (Auto) 10.3 (4-12) % Eos % (Auto) 5 (1.0-5.0) % Baso % (Auto) 1 (0-2) % Neut # (Auto) 3.6 (1.6-8.3) # Lymph # (Auto) 0.9 (0.6-5.0) # [place] # (Auto) 0.6 (0.0-1.3) # Eos # (Auto) 0.3 (0.0-0.8) # Baso # (Auto) 0.0 (0.0-0.2) # Sodium 143 (135-145) mmol/L Potassium 3.4 L (3.5-5.3) mmol/L Chloride 109 (100-110) mmol/L Carbon Dioxide 27 (23-29) mmol/L BUN 29 H (8-23) mg/dL Creatinine 0.9 (0.6-1.3) mg/dL Est Cr Clr Drug Dosing 38.75 mL/min Estimated GFR (MDRD) 59 L (>60) BUN/Creatinine Ratio 32.2 H (9-20) Glucose 128 H (80-116) mg/dL Calcium 9.1 (8.6-10.2) mg/dL Total Bilirubin 0.3 (0.1-1.3) mg/dL AST 15 D (5-27) IU/L ALT 10 L D (14-26) IU/L Alkaline Phosphatase 74 (56-112) IU/L Troponin I < 0.01 L (0.02-0.06) NG/ML Total Protein 7.0 (6.0-8.0) g/dL Albumin 3.9 (3.2-4.6) g/dL Globulin 3.1 g/dL Albumin/Globulin Ratio 1.3 Result Diagrams: 05/10/17 17:10 05/10/17 17:10 *Q Meaningful Use (ADM) - VTE *Q VTE Criteria *Q: - Stroke *Q Stroke Criteria *Q: - AMI *Q AMI Criteria *Q: - Problem List (1) Gastroenteritis SNOMED Code(s): 54626935 ICD Code: K52.9 - NONINFECTIVE GASTROENTERITIS AND COLITIS, UNSPECIFIED Status: Acute Current Visit: Yes (2) Dehydration SNOMED Code(s): 35988062 ICD Code: E86.0 - DEHYDRATION Status: Acute Current Visit: Yes (3) Weakness SNOMED Code(s): 31941988 ICD Code: R53.1 - WEAKNESS Status: Acute Current Visit: Yes Problem List Initiated/Reviewed/Updated: Yes Orders Last 24hrs: Active Orders 24 hr Category Date Time Status Patient Status [ADT] Routine ADT 05/10/17 15:47 Active Patient Status [ADT] Routine ADT 05/10/17 16:32 Active Height and Weight [RC] 06 Care 05/10/17 16:32 Active Intake and Output [RC] 06,14,22 Care 05/10/17 16:33 Active Oxygen Therapy [RC] PRN Care 05/10/17 16:32 Active Up With Assistance [RC] ASDIRECTED Care 05/10/17 16:32 Active Vital Signs [RC] 04,08,12,16,20,00 Care 05/10/17 16:32 Active Consult to Liability Claims Manager [CONS] Routine Cons 05/10/17 15:47 Active OT Evaluation and Treatment [CONS] Routine Cons 05/10/17 16:32 Active PT Evaluation and Treatment [CONS] Routine Cons 05/10/17 16:32 Active Regular Diet [DIET] Diet 05/10/17 Dinner Active UA W/MICROSCOPIC [URIN] Routine Lab 05/10/17 16:32 Uncollected Enoxaparin [Lovenox] Med 05/10/17 18:45 Active 40 mg SUBCUT DAILY Melatonin/Pyridoxine HCl (B6) [Melatonin 3 mg Tablet] Med 05/10/17 21:00 Pending 10 mg PO BEDTIME Mirtazapine [Remeron] Med 05/10/17 21:00 Active 45 mg PO BEDTIME Ondansetron [Zofran ODT] Med 05/10/17 16:32 Active 4 mg PO Q4H PRN Sodium Chloride 0.9% [Normal Saline] 1,000 ml Med 05/10/17 16:45 Active IV ASDIRECTED Sodium Chloride 0.9% [Saline Flush] Med 05/10/17 16:32 Active 10 ml FLUSH ASDIRECTED PRN hydrOXYzine HCl [Atarax] Med 05/10/17 16:38 Active 25 mg PO Q4H PRN rOPINIRole HCl [Requip XL] Med 05/11/17 09:00 Active 12 mg PO DAILY rOPINIRole [Requip] Med 05/10/17 21:00 Active 1 mg PO BEDTIME Peripheral IV Insertion Adult [OM.PC] Routine Oth 05/10/17 16:32 Ordered Sequential Compression Device [OM.PC] Per Unit Routine Oth 05/10/17 16:33 Ordered Resuscitation Status Routine Resus Stat 05/10/17 16:32 Ordered EKG 12 Lead [EK] Routine Ther 05/10/17 16:32 Ordered Medication Orders Enoxaparin Sodium (Lovenox) 40 mg SUBCUT DAILY [facility] Hydroxyzine HCl (Atarax) 25 mg PO Q4H PRN PRN Reason: Itching Sodium Chloride (Normal Saline) 1,000 mls @ 100 mls/hr IV ASDIRECTED [facility] Last Admin: 05/10/17 17:47 Dose: 100 mls/hr Mirtazapine (Remeron) 45 mg PO BEDTIME [facility] Non-Formulary Medication (Melatonin/Pyridoxine Hcl (B6) [Melatonin 3 Mg Tablet] ) 10 mg PO BEDTIME [facility] Ondansetron HCl (Zofran Odt) 4 mg PO Q4H PRN PRN Reason: nausea, able to take PO Ropinirole HCl (Requip Xl) 12 mg PO DAILY [facility] Ropinirole HCl (Requip) 1 mg PO BEDTIME [facility] Sodium Chloride (Saline Flush) 10 ml FLUSH ASDIRECTED PRN PRN Reason: Keep Vein Open Assessment/Plan Comment:: 1. Admit the patient for rehydration and evaluation of how many stools and what the stool is like. 2. Discussed advanced directives and she wants to be DNR/DNI 3. patient services specialist, PT/OT 4. regular medications. 5. Regular diet. 6. Intake and output, daily weights.
[2017-05-10] MEDS ORDERED: Mirtazapine 30 MG Tab PO SCH (21:00)
[2017-05-10] MEDS: rOPINIRole 1 MG Tab PO SCH (22:13)
[2017-05-11] MEDS: Sodium Chloride 0.9% 1,000 ML IV SCH ×2 (03:27→14:06)
--- NOTE | 2017-05-11 08:09 | PCM.PN ---
- General Info Date of Service: 05/11/17 Admission Dx/Problem (Free Text): Patient denies diarrhea, fevers, chills, nausea, vomiting. She states she is eating good today. The nurses state that she had a soft formed stool last night. The nurses also states she is very weak and requires 2 people to help her stand. - Patient Data Vitals - most recent: Last Vital Signs Temp 97.5 F 05/11/17 03:47 Pulse 79 05/11/17 03:47 Resp 18 05/11/17 03:47 BP 156/87 H 05/11/17 03:47 Pulse Ox 94 L 05/11/17 03:47 Weight - most recent: 125 lb 9.6 oz I&O - last 24 hours: Intake & Output 05/10/17 05/11/17 05/11/17 22:59 06:59 14:59 Intake Total 50 1296 Output Total 475 Balance 50 821 Lab Results last 24 hrs: Laboratory Results - last 24 hr 05/10/17 05/10/17 05/10/17 Range/Units 17:10 17:10 17:10 WBC 5.4 (4.5-12.0) X10-3/uL RBC 4.28 (3.23-5.20) x10(6)uL Hgb 12.7 (11.5-15.5) g/dL Hct 38.8 (30.0-51.3) % MCV 90.6 (80-96) fL MCH 29.8 (27.7-33.6) pg MCHC 32.8 (32.2-35.4) g/dL RDW 12.8 (11.5-15.5) % Plt Count 214 (125-369) X10(3)uL MPV 7.2 L (7.4-10.4) fL Neut % (Auto) 67.8 (46-82) % Lymph % (Auto) 16.0 (13-37) % [place] % (Auto) 10.3 (4-12) % Eos % (Auto) 5 (1.0-5.0) % Baso % (Auto) 1 (0-2) % Neut # (Auto) 3.6 (1.6-8.3) # Lymph # (Auto) 0.9 (0.6-5.0) # [place] # (Auto) 0.6 (0.0-1.3) # Eos # (Auto) 0.3 (0.0-0.8) # Baso # (Auto) 0.0 (0.0-0.2) # Sodium 143 (135-145) mmol/L Potassium 3.4 L (3.5-5.3) mmol/L Chloride 109 (100-110) mmol/L Carbon Dioxide 27 (23-29) mmol/L BUN 29 H (8-23) mg/dL Creatinine 0.9 (0.6-1.3) mg/dL Est Cr Clr Drug Dosing 38.75 mL/min Estimated GFR (MDRD) 59 L (>60) BUN/Creatinine Ratio 32.2 H (9-20) Glucose 128 H (80-116) mg/dL Calcium 9.1 (8.6-10.2) mg/dL Total Bilirubin 0.3 (0.1-1.3) mg/dL AST 15 D (5-27) IU/L ALT 10 L D (14-26) IU/L Alkaline Phosphatase 74 (56-112) IU/L Troponin I < 0.01 L (0.02-0.06) NG/ML Total Protein 7.0 (6.0-8.0) g/dL Albumin 3.9 (3.2-4.6) g/dL Globulin 3.1 g/dL Albumin/Globulin Ratio 1.3 Urine Color (YELLOW) Urine Appearance (CLEAR) Urine pH (5.0-6.5) Ur Specific [place] (1.010-1.025) Urine Protein (NEGATIVE) mg/dL Urine Glucose (UA) (NEGATIVE) mg/dL Urine Ketones (NEGATIVE) mg/dL Urine Occult Blood (NEGATIVE) Urine Nitrite (NEGATIVE) Urine Bilirubin (NEGATIVE) Urine Urobilinogen (NEGATIVE) mg/dL Ur Leukocyte Esterase (NEGATIVE) Urine RBC (0) Urine WBC (0) Ur Squamous Epith Cells (NS,R,O) Urine Bacteria (NS) Urine Mucus (NS) 05/10/17 Range/Units 19:11 WBC (4.5-12.0) X10-3/uL RBC (3.23-5.20) x10(6)uL Hgb (11.5-15.5) g/dL Hct (30.0-51.3) % MCV (80-96) fL MCH (27.7-33.6) pg MCHC (32.2-35.4) g/dL RDW (11.5-15.5) % Plt Count (125-369) X10(3)uL MPV (7.4-10.4) fL Neut % (Auto) (46-82) % Lymph % (Auto) (13-37) % [place] % (Auto) (4-12) % Eos % (Auto) (1.0-5.0) % Baso % (Auto) (0-2) % Neut # (Auto) (1.6-8.3) # Lymph # (Auto) (0.6-5.0) # [place] # (Auto) (0.0-1.3) # Eos # (Auto) (0.0-0.8) # Baso # (Auto) (0.0-0.2) # Sodium (135-145) mmol/L Potassium (3.5-5.3) mmol/L Chloride (100-110) mmol/L Carbon Dioxide (23-29) mmol/L BUN (8-23) mg/dL Creatinine (0.6-1.3) mg/dL Est Cr Clr Drug Dosing mL/min Estimated GFR (MDRD) (>60) BUN/Creatinine Ratio (9-20) Glucose (80-116) mg/dL Calcium (8.6-10.2) mg/dL Total Bilirubin (0.1-1.3) mg/dL AST (5-27) IU/L ALT (14-26) IU/L Alkaline Phosphatase (56-112) IU/L Troponin I (0.02-0.06) NG/ML Total Protein (6.0-8.0) g/dL Albumin (3.2-4.6) g/dL Globulin g/dL Albumin/Globulin Ratio Urine Color Yellow (YELLOW) Urine Appearance Slightly cloudy (CLEAR) Urine pH 5.0 (5.0-6.5) Ur Specific [place] 1.025 (1.010-1.025) Urine Protein Negative (NEGATIVE) mg/dL Urine Glucose (UA) Normal (NEGATIVE) mg/dL Urine Ketones Negative (NEGATIVE) mg/dL Urine Occult Blood Moderate H (NEGATIVE) Urine Nitrite Positive H (NEGATIVE) Urine Bilirubin Negative (NEGATIVE) Urine Urobilinogen Normal (NEGATIVE) mg/dL Ur Leukocyte Esterase Large H (NEGATIVE) Urine RBC 10-20 H (0) Urine WBC 40-50 H (0) Ur Squamous Epith Cells Moderate H (NS,R,O) Urine Bacteria Many H (NS) Urine Mucus Moderate H (NS) Med Orders - Current: Current Medications Enoxaparin Sodium (Lovenox) 40 mg SUBCUT DAILY@1900 [facility] Hydroxyzine HCl (Atarax) 25 mg PO Q4H PRN PRN Reason: Itching Sodium Chloride (Normal Saline) 1,000 mls @ 100 mls/hr IV ASDIRECTED [facility] Last Admin: 05/11/17 03:27 Dose: 100 mls/hr Ceftriaxone Sodium 1,000 mg/ (Sodium Chloride) 50 mls @ 100 mls/hr IV Q24H BRIAN Mirtazapine (Remeron) 45 mg PO BEDTIME [facility] Non-Formulary Medication (Melatonin/Pyridoxine Hcl (B6) [Melatonin 3 Mg Tablet] ) 10 mg PO BEDTIME BRIAN Ondansetron HCl (Zofran Odt) 4 mg PO Q4H PRN PRN Reason: nausea, able to take PO Ropinirole HCl (Requip Xl) 12 mg PO DAILY [facility] Ropinirole HCl (Requip) 1 mg PO BEDTIME [facility] Last Admin: 05/10/17 22:13 Dose: 1 mg Sodium Chloride (Saline Flush) 10 ml FLUSH ASDIRECTED PRN PRN Reason: Keep Vein Open Discontinued Medications Enoxaparin Sodium (Lovenox) 40 mg SUBCUT DAILY [facility] Last Admin: 05/10/17 19:06 Dose: 40 mg Mirtazapine (Remeron) 45 mg PO BEDTIME [facility] Last Admin: 05/10/17 22:13 Dose: 45 mg - Exam General: alert, cooperative Lungs: Clear to auscultation, Normal respiratory effort Cardiovascular: Regular Rate, Regular Rhythm, No Murmurs Extremities: no edema - Problem List & Annotations (1) Weakness SNOMED Code(s): 75511031 Code(s): R53.1 - WEAKNESS Status: Acute Current Visit: Yes (2) UTI (urinary tract infection) SNOMED Code(s): 34581628 Code(s): N39.0 - URINARY TRACT INFECTION, SITE NOT SPECIFIED Status: Acute Current Visit: Yes (3) Palliative care status SNOMED Code(s): 540343909 Code(s): Z51.5 - ENCOUNTER FOR PALLIATIVE CARE Status: Acute Current Visit: Yes - Problem List Review Problem List Initiated/Reviewed/Updated: Yes - My Orders Last 24 Hours: My Active Orders 05/10/17 15:47 Patient Status [ADT] Routine Consult to Emission Technician [CONS] Routine 05/10/17 16:32 Patient Status [ADT] Routine Oxygen Therapy [RC] PRN Up With Assistance [RC] ASDIRECTED Vital Signs [RC] QSHIFT OT Evaluation and Treatment [CONS] Routine PT Evaluation and Treatment [CONS] Routine Ondansetron [Zofran ODT] 4 mg PO Q4H PRN Sodium Chloride 0.9% [Saline Flush] 10 ml FLUSH ASDIRECTED PRN Peripheral IV Insertion Adult [OM.PC] Routine Resuscitation Status Routine EKG 12 Lead [EK] Routine 05/10/17 16:33 Sequential Compression Device [OM.PC] Per Unit Routine 05/10/17 16:38 hydrOXYzine HCl [Atarax] 25 mg PO Q4H PRN 05/10/17 16:45 Sodium Chloride 0.9% [Normal Saline] 1,000 ml IV ASDIRECTED 05/10/17 21:00 Melatonin/Pyridoxine HCl (B6) [Melatonin 3 mg Tablet] 10 mg PO BEDTIME rOPINIRole [Requip] 1 mg PO BEDTIME 05/10/17 Dinner Regular Diet [DIET] 05/11/17 08:15 cefTRIAXone [Rocephin] 1,000 mg Sodium Chloride 0.9% [Normal Saline] 50 ml IV Q24H 05/11/17 09:00 rOPINIRole HCl [Requip XL] 12 mg PO DAILY 05/11/17 19:00 Enoxaparin [Lovenox] 40 mg SUBCUT DAILY@1900 05/11/17 21:00 Mirtazapine [Remeron] 45 mg PO BEDTIME - Plan Plan:: 1. UA is positive for UTI. Culture is been set up. 2. Rocephin 1 g every 24 hours for UTI. 3. PT/OT/social service. 4. Decrease IV fluid rate to 75 mL an hour. 5. Vitals every shift. 6. DC I's and O's and daily weights.
[2017-05-11] MEDS: cefTRIAXone 1,000 MG in Sodium Chloride 0.9% 50 ML IV SCH (08:28)
[2017-05-11] MEDS: ROPINIROLE HCL 4 MG PO SCH (08:33)
[2017-05-11] MEDS: Enoxaparin 40 MG/0.4 ML Syringe SUBCUT SCH (18:56)
[2017-05-11] MEDS: Mirtazapine 15 MG Tab PO SCH (20:55)
[2017-05-11] MEDS: rOPINIRole 1 MG Tab PO SCH (20:55)
[2017-05-12] MEDS: Sodium Chloride 0.9% 1,000 ML IV SCH (04:31)
--- NOTE | 2017-05-12 07:30 | PCM.PN ---
- General Info Date of Service: 05/12/17 Admission Dx/Problem (Free Text): Patient states she had lots of urination last night. She thinks it is from the IV. She states she had 2 stools that were soft last night. She denies chest pain , shortness of breath, abdominal pain, fevers, chills, leg swelling. - Patient Data Vitals - most recent: Last Vital Signs Temp 97.4 F 05/11/17 23:58 Pulse 81 05/11/17 23:58 Resp 17 05/11/17 23:58 BP 155/100 H 05/11/17 23:58 Pulse Ox 93 L 05/11/17 23:58 Weight - most recent: 125 lb 9.6 oz I&O - last 24 hours: Intake & Output 05/11/17 05/12/17 05/12/17 22:59 06:59 14:59 Intake Total 1360 550 Output Total 1650 Balance 1360 -1100 Cristóbal Results last 24 hrs: Microbiology 05/10/17 19:11 Urine Culture - Preliminary Urine, Voided Gram Negative Rods Med Orders - Current: Current Medications Enoxaparin Sodium (Lovenox) 40 mg SUBCUT DAILY@1900 [facility] Last Admin: 05/11/17 18:56 Dose: 40 mg Hydroxyzine HCl (Atarax) 25 mg PO Q4H PRN PRN Reason: Itching Ceftriaxone Sodium 1,000 mg/ (Sodium Chloride) 50 mls @ 100 mls/hr IV Q24H [facility] Last Admin: 05/11/17 08:28 Dose: 100 mls/hr Melatonin (Melatonin) 10 mg PO BEDTIME [facility] Last Admin: 05/11/17 20:54 Dose: 10 mg Mirtazapine (Remeron) 45 mg PO BEDTIME [facility] Last Admin: 05/11/17 20:55 Dose: 45 mg Ondansetron HCl (Zofran Odt) 4 mg PO Q4H PRN PRN Reason: nausea, able to take PO Ropinirole HCl (Requip Xl) 12 mg PO DAILY [facility] Last Admin: 05/11/17 08:33 Dose: 12 mg Ropinirole HCl (Requip) 1 mg PO BEDTIME [facility] Last Admin: 05/11/17 20:55 Dose: 1 mg Discontinued Medications Enoxaparin Sodium (Lovenox) 40 mg SUBCUT DAILY [facility] Last Admin: 05/10/17 19:06 Dose: 40 mg Sodium Chloride (Normal Saline) 1,000 mls @ 70 mls/hr IV ASDIRECTED [facility] Last Admin: 05/12/17 04:31 Dose: 70 mls/hr Mirtazapine (Remeron) 45 mg PO BEDTIME [facility] Last Admin: 05/10/17 22:13 Dose: 45 mg Sodium Chloride (Saline Flush) 10 ml FLUSH ASDIRECTED PRN PRN Reason: Keep Vein Open - Exam General: alert, oriented, cooperative Neck: supple Lungs: Clear to auscultation, Normal respiratory effort Cardiovascular: Regular Rate, Regular Rhythm, No Murmurs Extremities: no edema Skin: warm, dry, intact Psy/Mental Status: alert, normal affect, normal mood - Problem List & Annotations (1) Weakness SNOMED Code(s): 20682986 Code(s): R53.1 - WEAKNESS Status: Acute Current Visit: Yes (2) UTI (urinary tract infection) SNOMED Code(s): 64234651 Code(s): N39.0 - URINARY TRACT INFECTION, SITE NOT SPECIFIED Status: Acute Current Visit: Yes (3) Palliative care status SNOMED Code(s): 442875540 Code(s): Z51.5 - ENCOUNTER FOR PALLIATIVE CARE Status: Acute Current Visit: Yes - Problem List Review Problem List Initiated/Reviewed/Updated: Yes - My Orders Last 24 Hours: My Active Orders 05/11/17 08:15 cefTRIAXone [Rocephin] 1,000 mg Sodium Chloride 0.9% [Normal Saline] 50 ml IV Q24H 05/11/17 09:00 rOPINIRole HCl [Requip XL] 12 mg PO DAILY 05/11/17 19:00 Enoxaparin [Lovenox] 40 mg SUBCUT DAILY@1900 05/11/17 21:00 Melatonin 10 mg PO BEDTIME Mirtazapine [Remeron] 45 mg PO BEDTIME 05/12/17 07:21 Convert IV to Saline Lock [OM.PC] Routine - Plan Plan:: 1. Stop IV fluids and Saline lock IV 2 Start Lisinopril for BP 3. Await I and D of the Gram neg santana in the urine. 4. NH placement.
[2017-05-12] MEDS: cefTRIAXone 1,000 MG in Sodium Chloride 0.9% 50 ML IV SCH (08:22)
[2017-05-12] MEDS: ROPINIROLE HCL 4 MG PO SCH (09:20)
[2017-05-12] MEDS: Lisinopril 5 MG Tab PO SCH (09:20)
[2017-05-12] MEDS: Acetaminophen 325 MG Tab PO PRN (10:49)
[2017-05-12] MEDS: Ciprofloxacin 250 MG Tab PO SCH (19:33)
[2017-05-12] MEDS: Enoxaparin 40 MG/0.4 ML Syringe SUBCUT SCH (19:34)
[2017-05-12] MEDS: Mirtazapine 15 MG Tab PO SCH (21:58)
[2017-05-12] MEDS: rOPINIRole 1 MG Tab PO SCH (21:59)
[2017-05-13] MEDS: Lisinopril 5 MG Tab PO SCH (09:07)
[2017-05-13] MEDS: ROPINIROLE HCL 4 MG PO SCH (09:07)
--- NOTE | 2017-05-13 10:39 | PN ---
DATE SEEN: 05/13/2017 SUBJECTIVE: Sarah Lara is an 87-year-old female, admitted with urosepsis. But in question was Klebsiella. Sensitivities revealed sensitive to ciprofloxacin resistant to Macrodantin. Doing well in that regard. Taking fluids well, eating well, comfortable. Potassium on admission 3.4, today at recheck 2.8. We will treat accordingly. OBJECTIVE: VITAL SIGNS: 122/72, 36.6 degrees Fahrenheit, 18 is the respirations, and 97%. GENERAL: Appears comfortable. NECK: Benign. Thyroid small. CHEST: Clear in all lung [place]. HEART: Regular rate without ectopy or murmur. ABDOMEN: Benign. ASSESSMENT: Urinary tract infection PLAN: Continue ciprofloxacin 250 mg b.i.d. complementary care and well being, longterm referral upcoming and planned. /[id number] MARI/KIM
[2017-05-13] MEDS: Ciprofloxacin 250 MG Tab PO SCH ×2 (11:55→21:28)
[2017-05-13] MEDS: Potassium Chloride 20 MEQ Tab.ER PO SCH ×3 (11:56→21:25)
[2017-05-13] MEDS: Enoxaparin 40 MG/0.4 ML Syringe SUBCUT SCH (19:08)
[2017-05-13] MEDS: Mirtazapine 15 MG Tab PO SCH (21:26)
[2017-05-13] MEDS: rOPINIRole 1 MG Tab PO SCH (21:28)
[2017-05-14] MEDS: Lisinopril 5 MG Tab PO SCH (09:07)
[2017-05-14] MEDS: ROPINIROLE HCL 4 MG PO SCH (09:07)
[2017-05-14] MEDS: Potassium Chloride 20 MEQ Tab.ER PO SCH ×3 (09:07→20:44)
[2017-05-14] MEDS: Ciprofloxacin 250 MG Tab PO SCH ×2 (11:08→22:10)
--- NOTE | 2017-05-14 11:56 | PN ---
DATE SEEN: 05/14/2017 SUBJECTIVE: Sarah Lara is an 87-year-old female, who was admitted with complicated urinary tract infection. Antibiotic sensitive ciprofloxacin to Klebsiella. Awaiting [facility] visit. Otherwise, doing well. Recent laboratory studies; potassium went from 2.8 to 3.4. We will recheck the potassium tomorrow accordingly. OBJECTIVE: GENERAL: Soft spoken, but appropriate. CHEST: Clear. HEART: Regular. ABDOMEN: Benign. ASSESSMENT: Resolving urinary tract infection. PLAN: Continue oral ciprofloxacin. Medications, care, and treatment appropriate. /[id number] MARI/KIM
[2017-05-14] MEDS: Enoxaparin 40 MG/0.4 ML Syringe SUBCUT SCH (18:49)
[2017-05-14] MEDS: Mirtazapine 15 MG Tab PO SCH (20:44)
[2017-05-14] MEDS: rOPINIRole 1 MG Tab PO SCH (20:45)
[2017-05-15] MEDS: Lisinopril 5 MG Tab PO SCH (08:09)
[2017-05-15] MEDS: Potassium Chloride 20 MEQ Tab.ER PO SCH ×2 (08:09→09:03)
[2017-05-15] MEDS: Acetaminophen 325 MG Tab PO PRN ×2 (08:10→19:52)
[2017-05-15] MEDS: ROPINIROLE HCL 4 MG PO SCH (08:10)
--- NOTE | 2017-05-15 08:19 | PCM.PN ---
- General Info Date of Service: 05/15/17 Admission Dx/Problem (Free Text): Patient states she's had a little neck pain. She is using some ice and Tylenol which is helping. She has no falls or injuries. She denies chest pain, shortness breath, leg swelling, dysuria, pyuria, hematuria. - Patient Data Vitals - most recent: Last Vital Signs Temp 97.5 F 05/15/17 00:00 Pulse 68 05/15/17 00:00 Resp 18 05/15/17 00:00 BP 158/91 H 05/15/17 08:09 Pulse Ox 96 05/15/17 00:00 Weight - most recent: 125 lb 9.6 oz Lab Results last 24 hrs: Laboratory Results - last 24 hr 05/15/17 Range/Units 06:20 Potassium 3.6 (3.5-5.3) mmol/L Med Orders - Current: Current Medications Acetaminophen (Tylenol) 650 mg PO Q4H PRN PRN Reason: Pain Last Admin: 05/15/17 08:10 Dose: 650 mg Ciprofloxacin (Ciprofloxacin Hcl) 250 mg PO BID@1000,2200 [facility] Last Admin: 05/14/17 22:10 Dose: 250 mg Enoxaparin Sodium (Lovenox) 40 mg SUBCUT DAILY@1900 [facility] Last Admin: 05/14/17 18:49 Dose: 40 mg Hydroxyzine HCl (Atarax) 25 mg PO Q4H PRN PRN Reason: Itching Lisinopril (Prinivil) 5 mg PO DAILY [facility] Last Admin: 05/15/17 08:09 Dose: 5 mg Melatonin (Melatonin) 10 mg PO BEDTIME [facility] Last Admin: 05/14/17 20:44 Dose: 10 mg Mirtazapine (Remeron) 45 mg PO BEDTIME [facility] Last Admin: 05/14/17 20:44 Dose: 45 mg Ondansetron HCl (Zofran Odt) 4 mg PO Q4H PRN PRN Reason: nausea, able to take PO Potassium Chloride (Klor-Con M20) 20 meq PO TID [facility] Last Admin: 05/15/17 08:09 Dose: 20 meq Ropinirole HCl (Requip Xl) 12 mg PO DAILY [facility] Last Admin: 05/15/17 08:10 Dose: 12 mg Ropinirole HCl (Requip) 1 mg PO BEDTIME [facility] Last Admin: 05/14/17 20:45 Dose: 1 mg Discontinued Medications Enoxaparin Sodium (Lovenox) 40 mg SUBCUT DAILY [facility] Last Admin: 05/10/17 19:06 Dose: 40 mg Sodium Chloride (Normal Saline) 1,000 mls @ 70 mls/hr IV ASDIRECTED [facility] Last Admin: 05/12/17 04:31 Dose: 70 mls/hr Ceftriaxone Sodium 1,000 mg/ (Sodium Chloride) 50 mls @ 100 mls/hr IV Q24H [facility] Last Admin: 05/12/17 08:22 Dose: 100 mls/hr Mirtazapine (Remeron) 45 mg PO BEDTIME [facility] Last Admin: 05/10/17 22:13 Dose: 45 mg Sodium Chloride (Saline Flush) 10 ml FLUSH ASDIRECTED PRN PRN Reason: Keep Vein Open - Exam General: alert, oriented, cooperative Neck: supple Lungs: Clear to auscultation, Normal respiratory effort Cardiovascular: Regular Rate, Regular Rhythm, No Murmurs Extremities: no edema - Problem List & Annotations (1) Weakness SNOMED Code(s): 82662167 Code(s): R53.1 - WEAKNESS Status: Acute Current Visit: Yes (2) UTI (urinary tract infection) SNOMED Code(s): 84556571 Code(s): N39.0 - URINARY TRACT INFECTION, SITE NOT SPECIFIED Status: Acute Current Visit: Yes (3) Palliative care status SNOMED Code(s): 897482711 Code(s): Z51.5 - ENCOUNTER FOR PALLIATIVE CARE Status: Acute Current Visit: Yes (4) Neck pain SNOMED Code(s): 76943580 Code(s): M54.2 - CERVICALGIA Status: Acute Current Visit: Yes (5) Hypertension SNOMED Code(s): 62072603 Code(s): I10 - ESSENTIAL (PRIMARY) HYPERTENSION Status: Acute Current Visit: Yes - Problem List Review Problem List Initiated/Reviewed/Updated: Yes - Plan Plan:: 1. Awaiting for [facility] placement. 2. Decrease of potassium 20 mEq a day. 3. Increase lisinopril to 10 mg a day. 4. Continue Tylenol with ice when necessary for the neck pain.
[2017-05-15] MEDS: Lisinopril 10 MG Tab PO SCH (09:04)
[2017-05-15] MEDS: Ciprofloxacin 250 MG Tab PO SCH ×2 (09:18→22:05)
[2017-05-15] MEDS: Enoxaparin 40 MG/0.4 ML Syringe SUBCUT SCH (18:15)
[2017-05-15] MEDS: Mirtazapine 15 MG Tab PO SCH (21:09)
[2017-05-15] MEDS: rOPINIRole 1 MG Tab PO SCH (21:09)
--- NOTE | 2017-05-16 07:47 | PCM.PN ---
- General Info Date of Service: 05/16/17 Admission Dx/Problem (Free Text): The patient is without concerns today. She is apprehensive about going to a [facility]. She denies neck pain, chest pain, shortness of breath, fevers, chills, dysuria, pyuria, hematuria. She says she is very weak still to this day. - Patient Data Vitals - most recent: Last Vital Signs Temp 97.6 F 05/16/17 00:00 Pulse 72 05/16/17 00:00 Resp 20 05/16/17 00:00 BP 122/73 05/16/17 00:00 Pulse Ox 92 L 05/16/17 00:00 Weight - most recent: 125 lb 9.6 oz I&O - last 24 hours: Intake & Output 05/15/17 05/16/17 05/16/17 22:59 06:59 14:59 Intake Total 300 Balance 300 Med Orders - Current: Current Medications Acetaminophen (Tylenol) 650 mg PO Q4H PRN PRN Reason: Pain Last Admin: 05/15/17 19:52 Dose: 650 mg Ciprofloxacin (Ciprofloxacin Hcl) 250 mg PO BID@1000,2200 [facility] Last Admin: 05/15/17 22:05 Dose: 250 mg Enoxaparin Sodium (Lovenox) 40 mg SUBCUT DAILY@1900 [facility] Last Admin: 05/15/17 18:15 Dose: 40 mg Hydroxyzine HCl (Atarax) 25 mg PO Q4H PRN PRN Reason: Itching Lisinopril (Prinivil) 10 mg PO DAILY [facility] Last Admin: 05/15/17 09:04 Dose: 10 mg Melatonin (Melatonin) 10 mg PO BEDTIME [facility] Last Admin: 05/15/17 21:08 Dose: 10 mg Mirtazapine (Remeron) 45 mg PO BEDTIME [facility] Last Admin: 05/15/17 21:09 Dose: 45 mg Ondansetron HCl (Zofran Odt) 4 mg PO Q4H PRN PRN Reason: nausea, able to take PO Potassium Chloride (Klor-Con M20) 20 meq PO DAILY [facility] Last Admin: 05/15/17 09:03 Dose: 20 meq Ropinirole HCl (Requip Xl) 12 mg PO DAILY [facility] Last Admin: 05/15/17 08:10 Dose: 12 mg Ropinirole HCl (Requip) 1 mg PO BEDTIME [facility] Last Admin: 05/15/17 21:09 Dose: 1 mg Discontinued Medications Enoxaparin Sodium (Lovenox) 40 mg SUBCUT DAILY [facility] Last Admin: 05/10/17 19:06 Dose: 40 mg Sodium Chloride (Normal Saline) 1,000 mls @ 70 mls/hr IV ASDIRECTED [facility] Last Admin: 05/12/17 04:31 Dose: 70 mls/hr Ceftriaxone Sodium 1,000 mg/ (Sodium Chloride) 50 mls @ 100 mls/hr IV Q24H [facility] Last Admin: 05/12/17 08:22 Dose: 100 mls/hr Lisinopril (Prinivil) 5 mg PO DAILY [facility] Last Admin: 05/15/17 08:09 Dose: 5 mg Mirtazapine (Remeron) 45 mg PO BEDTIME [facility] Last Admin: 05/10/17 22:13 Dose: 45 mg Potassium Chloride (Klor-Con M20) 20 meq PO TID [facility] Last Admin: 05/15/17 08:09 Dose: 20 meq Sodium Chloride (Saline Flush) 10 ml FLUSH ASDIRECTED PRN PRN Reason: Keep Vein Open - Exam General: alert, oriented, cooperative Neck: supple Lungs: Clear to auscultation, Normal respiratory effort Cardiovascular: Regular Rate, Regular Rhythm, No Murmurs Extremities: no edema - Problem List & Annotations (1) Weakness SNOMED Code(s): 85673251 Code(s): R53.1 - WEAKNESS Status: Acute Current Visit: Yes (2) UTI (urinary tract infection) SNOMED Code(s): 44125785 Code(s): N39.0 - URINARY TRACT INFECTION, SITE NOT SPECIFIED Status: Acute Current Visit: Yes (3) Palliative care status SNOMED Code(s): 674322148 Code(s): Z51.5 - ENCOUNTER FOR PALLIATIVE CARE Status: Acute Current Visit: Yes (4) Neck pain SNOMED Code(s): 89862708 Code(s): M54.2 - CERVICALGIA Status: Acute Current Visit: Yes (5) Hypertension SNOMED Code(s): 96537388 Code(s): I10 - ESSENTIAL (PRIMARY) HYPERTENSION Status: Acute Current Visit: Yes (6) Hypokalemia SNOMED Code(s): 67409786 Code(s): E87.6 - HYPOKALEMIA Status: Acute Current Visit: Yes - Problem List Review Problem List Initiated/Reviewed/Updated: Yes - My Orders Last 24 Hours: My Active Orders 05/15/17 09:00 Lisinopril [Prinivil] 10 mg PO DAILY Potassium Chloride [Klor-Con M20] 20 meq PO DAILY - Plan Plan:: 1. Transfer to [facility] today on Cipro, lisinopril, potassium and her regular medications.
--- NOTE | 2017-05-16 07:53 | PCM.DCSUM1 ---
Discharge Summary - Hospital Course Free Text/Narrative:: Hospital course-she was admitted and found to have a UTI start on Rocephin. Culture grew Klebsiella sensitive to Cipro and she was changed to 250 mg twice a day. Patient was profoundly weak while she was here. It improved mildly but not very well even though she is getting PT/OT. Her blood pressure was elevated. She started Cipro 5 mg and was increased to 10 mg. Potassium was low and she required 3 times a day 20 milk was potassium and we decreased to 20 mEq when her potassium was normal. She'll be transferred to the skilled nursing because she is not able to care for herself at home. Brief History: This is an 87-year-old female patient was brought to the clinic by her daughter she lives within [facility]. She states the patient cannot walk anymore and she can handle her at home. She's had diarrhea for about 10 days was getting better and now got worse again. She's not eating or drinking very well according to the daughter. The patient says she is eating and drinking fine. The patient states she can't walk anymore and this new finding. She's generally weak. No lateralizing weakness. She denies runny nose, sore throat, cough, shortness of breath, chest pain, nausea, vomiting. She has some abdominal cramping. - Discharge Data Discharge Date: 05/16/17 Discharge Disposition: DC/Tfer to Skilled Nursing Care 63 Condition: Good - Discharge Diagnosis/Problem(s) (1) Weakness SNOMED Code(s): 40296443 ICD Code: R53.1 - WEAKNESS Status: Acute Current Visit: Yes (2) UTI (urinary tract infection) SNOMED Code(s): 73831775 ICD Code: N39.0 - URINARY TRACT INFECTION, SITE NOT SPECIFIED Status: Acute Current Visit: Yes (3) Palliative care status SNOMED Code(s): 096282836 ICD Code: Z51.5 - ENCOUNTER FOR PALLIATIVE CARE Status: Acute Current Visit: Yes (4) Neck pain SNOMED Code(s): 64546974 ICD Code: M54.2 - CERVICALGIA Status: Acute Current Visit: Yes (5) Hypertension SNOMED Code(s): 96577463 ICD Code: I10 - ESSENTIAL (PRIMARY) HYPERTENSION Status: Acute Current Visit: Yes (6) Hypokalemia SNOMED Code(s): 09020645 ICD Code: E87.6 - HYPOKALEMIA Status: Acute Current Visit: Yes - Patient Summary/Data Consults: Consultations 05/10/17 15:47 Consult to Eyeglass Frames Polisher [CONS] Routine Comment: Physician Instructions: Reason for Consult: placement 05/10/17 16:32 OT Evaluation and Treatment [CONS] Routine Please Evaluate and Treat. OT Reason for Consult: Strengthening This query below is only for informational purposes and is not editable. Admission Diagnosis/Problem: Dehydration PT Evaluation and Treatment [CONS] Routine Please Evaluate and Treat. PT Reason for Consult: Ambulation This query below is only for informational purposes and is not editable. Admission Diagnosis/Problem: Dehydration - Patient Instructions Diet: Regular Diet as Tolerated Activity: Apply Ice Driving: Do Not Drive Showering/Bathing: May Shower Notify Provider of: Fever, Increased Pain, Swelling and Redness, Nausea and/or Vomiting Other/Special Instructions: 1. PT/OT. 2. Check CBC, CMP in 7-10 days. - Discharge Plan Prescriptions/Med Rec: Ciprofloxacin [Ciprofloxacin HCl] 250 mg PO BID@1000,2200 #10 tablet Lisinopril [Prinivil] 10 mg PO DAILY #30 tablet Potassium Chloride [Klor-Con M20] 20 meq PO DAILY #30 tab.er Home Medications: Home Meds Mirtazapine 45 mg PO BEDTIME 03/25/17 [History] hydrOXYzine HCl [hydrOXYzine] 25 mg PO Q4H PRN 03/25/17 [History] rOPINIRole HCl [Ropinirole ER] 12 mg PO DAILY 03/25/17 [History] rOPINIRole [Requip] 1 mg PO BEDTIME 03/25/17 [History] Melatonin/Pyridoxine HCl (B6) [Melatonin 3 mg Tablet] 10 mg PO BEDTIME 05/10/17 [History] Ciprofloxacin [Ciprofloxacin HCl] 250 mg PO BID@1000,2200 #10 tablet 05/16/17 [ Rx] Lisinopril [Prinivil] 10 mg PO DAILY #30 tablet 05/16/17 [Rx] Potassium Chloride [Klor-Con M20] 20 meq PO DAILY #30 tab.er 05/16/17 [Rx] - Discharge Summary/Plan Comment DC Time >30 min.: No - Patient Data Vitals - Most Recent: Last Vital Signs Temp 97.6 F 05/16/17 00:00 Pulse 72 05/16/17 00:00 Resp 20 05/16/17 00:00 BP 122/73 05/16/17 00:00 Pulse Ox 92 L 05/16/17 00:00 Weight - Most Recent: 125 lb 9.6 oz I&O - Last 24 hours: Intake & Output 05/15/17 05/16/17 05/16/17 22:59 06:59 14:59 Intake Total 300 Balance 300 Med Orders - Current: Current Medications Acetaminophen (Tylenol) 650 mg PO Q4H PRN PRN Reason: Pain Last Admin: 05/15/17 19:52 Dose: 650 mg Ciprofloxacin (Ciprofloxacin Hcl) 250 mg PO BID@1000,2200 [facility] Last Admin: 05/15/17 22:05 Dose: 250 mg Enoxaparin Sodium (Lovenox) 40 mg SUBCUT DAILY@1900 [facility] Last Admin: 05/15/17 18:15 Dose: 40 mg Hydroxyzine HCl (Atarax) 25 mg PO Q4H PRN PRN Reason: Itching Lisinopril (Prinivil) 10 mg PO DAILY [facility] Last Admin: 05/15/17 09:04 Dose: 10 mg Melatonin (Melatonin) 10 mg PO BEDTIME [facility] Last Admin: 05/15/17 21:08 Dose: 10 mg Mirtazapine (Remeron) 45 mg PO BEDTIME [facility] Last Admin: 05/15/17 21:09 Dose: 45 mg Ondansetron HCl (Zofran Odt) 4 mg PO Q4H PRN PRN Reason: nausea, able to take PO Potassium Chloride (Klor-Con M20) 20 meq PO DAILY [facility] Last Admin: 05/15/17 09:03 Dose: 20 meq Ropinirole HCl (Requip Xl) 12 mg PO DAILY [facility] Last Admin: 05/15/17 08:10 Dose: 12 mg Ropinirole HCl (Requip) 1 mg PO BEDTIME [facility] Last Admin: 05/15/17 21:09 Dose: 1 mg Discontinued Medications Enoxaparin Sodium (Lovenox) 40 mg SUBCUT DAILY [facility] Last Admin: 05/10/17 19:06 Dose: 40 mg Sodium Chloride (Normal Saline) 1,000 mls @ 70 mls/hr IV ASDIRECTED [facility] Last Admin: 05/12/17 04:31 Dose: 70 mls/hr Ceftriaxone Sodium 1,000 mg/ (Sodium Chloride) 50 mls @ 100 mls/hr IV Q24H [facility] Last Admin: 05/12/17 08:22 Dose: 100 mls/hr Lisinopril (Prinivil) 5 mg PO DAILY [facility] Last Admin: 05/15/17 08:09 Dose: 5 mg Mirtazapine (Remeron) 45 mg PO BEDTIME [facility] Last Admin: 05/10/17 22:13 Dose: 45 mg Potassium Chloride (Klor-Con M20) 20 meq PO TID [facility] Last Admin: 05/15/17 08:09 Dose: 20 meq Sodium Chloride (Saline Flush) 10 ml FLUSH ASDIRECTED PRN PRN Reason: Keep Vein Open *Q Meaningful Use (DIS) - VTE *Q VTE Criteria *Q: - Stroke *Q Stroke Criteria *Q: - AMI *Q AMI Criteria *Q:
[2017-05-16 08:06] VITALS: BP 146/92
[2017-05-16] MEDS ORDERED: Tuberculin, PPD 5 Units/0.1 ML 1 ML MDV IDERM ONE (08:14)
[2017-05-16] MEDS: Potassium Chloride 20 MEQ Tab.ER PO SCH (08:42)
[2017-05-16] MEDS: Lisinopril 10 MG Tab PO SCH (08:42)
[2017-05-16] MEDS: ROPINIROLE HCL 4 MG PO SCH (08:43)
[2017-05-16] MEDS: Ciprofloxacin 250 MG Tab PO SCH (10:04)
== END 2017-05-16 10:10 | DRG 690 ==
LOC: FB.MS 15:53
PROVIDERS: ADMIT Family Medicine; ATTEND Family Medicine
DX: N39.0 Urinary tract infection, site not specified (principal); B96.1 Klebsiella pneumoniae [K. pneumoniae] as the cause of diseases classified elsewhere; Z16.39 Resistance to other specified antimicrobial drug; I10 Essential (primary) hypertension; Z51.5 Encounter for palliative care; Z66 Do not resuscitate; E87.6 Hypokalemia; M54.2 Cervicalgia; M15.9 Polyosteoarthritis, unspecified; F32.9 Major depressive disorder, single episode, unspecified; Z86.73 Personal history of transient ischemic attack (TIA), and cerebral infarction without residual deficits; H54.7 Unspecified visual loss; H54.41 Blindness, right eye, normal vision left eye; R53.1 Weakness; E86.0 Dehydration; G20 Parkinson's disease; Z86.79 Personal history of other diseases of the circulatory system
CPT/HCPCS: 36415; 80053; 81001; 84132; 84484; 85025; 86580; 87086; 87088; 87186; 93005; 97110-GP; 97116-GP; 97162-GP; 97165-GO; 97530-GO-KX; 97530-GP; 97535-GO; A9270-GY; J0696; J1650; J7040; J7050

== ENCOUNTER 2018-01-02 08:42 | Inpatient (IN) | payer MEDICARE, OTHER, MEDICAID ==
[2018-01-02] MEDS ORDERED: Sodium Chloride 0.9% 10 ML Syringe FLUSH PRN (08:44)
--- NOTE | 2018-01-02 08:56 | EDM.PDOC ---
ED HPI GENERAL MEDICAL PROBLEM - General Chief Complaint: General Stated Complaint: UNRESPONSIVE Time Seen by Provider: 01/02/18 08:45 Source of Information: Reports: EMS, Longterm Records, Old Records History Limitations: Reports: Other (patient is non-verbal) - History of Present Illness INITIAL COMMENTS - FREE TEXT/NARRATIVE: 87 yo female was transported by EMS from her [facility] this morning for decreased LOC. Is normally alert and oriented. Is a no code. BP initially noted to be low at the [facility], EMS noted a BP in the low 100's. Has a pHx of previous UTI's. Temp at [facility] noted to be 99.8F. Has not had any of her morning meds yet. Onset: Today Onset Date: 01/02/18 Duration: Hour(s): (uncertain duration, discovered this morning in her room in this condition. ) Location: Reports: Generalized Quality: Reports: Other (unknown pain status) Severity: Moderate Improves with: Reports: None Worsens with: Reports: Other (? time) Context: Reports: Other ([facility]) Associated Symptoms: Reports: Fever/Chills (low grade). Denies: Diaphoresis, Rash, Shortness of Breath Treatments UX VISUAL DESIGNER: Reports: Other (see below) (none) - Related Data Allergies Allergy/AdvReac Type Severity Reaction Status Date / Time No Known Allergies Allergy Verified 01/02/18 08:50 Home Meds: Home Meds Mirtazapine 45 mg PO BEDTIME 03/25/17 [History] hydrOXYzine HCl [hydrOXYzine] 25 mg PO Q4H PRN 03/25/17 [History] rOPINIRole HCl [Ropinirole ER] 12 mg PO DAILY 03/25/17 [History] rOPINIRole [Requip] 1 mg PO BEDTIME 03/25/17 [History] Melatonin/Pyridoxine HCl (B6) [Melatonin 3 mg Tablet] 10 mg PO BEDTIME 05/10/17 [History] Ciprofloxacin [Ciprofloxacin HCl] 250 mg PO BID@1000,2200 #10 tablet 05/16/17 [ Rx] Lisinopril [Prinivil] 10 mg PO DAILY #30 tablet 05/16/17 [Rx] Potassium Chloride [Klor-Con M20] 20 meq PO DAILY #30 tab.er 05/16/17 [Rx] Past Medical History HEENT History: Reports: Cataract, Impaired Vision, Other (See Below) Other HEENT History: 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, cataract removed from left eye Cardiovascular History: Reports: Afib, Heart Failure, Hypertension, SOB on Exertion Respiratory History: Reports: SOB Gastrointestinal History: Reports: Chronic Constipation, Chronic Diarrhea Other Gastrointestinal History: alternates between constipation and diarhea Genitourinary History: Reports: None RELAY ADJUSTER History: Reports: Musculoskeletal History: Reports: Other (See Below) Other Musculoskeletal History: gen arthritis, neck,back,shoulder Neurological History: Reports: CVA, Parkinson's Other Neuro History: Hx rheumatic fever when a teenager Psychiatric History: Reports: Depression Immunologic History: Reports: None Oncologic (Cancer) History: Reports: None Dermatologic History: Reports: Other (See Below) Other Dermatologic History: gen itchy - Infectious Disease History Infectious Disease History: Reports: Chicken Pox, Measles, Mumps, Rheumatic Fever Other Infectious Disease History: Hepatitis in High School, unknown what type. - Past Surgical History HEENT Surgical History: Reports: Cataract Surgery Cardiovascular Surgical History: Reports: None Respiratory Surgical History: Reports: None Neurological Surgical History: Reports: None Social & Family History - Family History Family Medical History: Noncontributory - Tobacco Use Smoking Status *Q: Never Smoker Second Hand Smoke Exposure: No - Caffeine Use Caffeine Use: Reports: Coffee Other Caffeine Use: 2 cups Qam - Alcohol Use Days Per Week of Alcohol Use: 4 Number of Drinks Per Day: 1 Total Drinks Per Week: 4 - Recreational Drug Use Recreational Drug Use: No - Living Situation & Occupation Living situation: Reports: Occupation: Retired ED ROS GENERAL - Review of Systems Review Of Systems: Unable To Obtain (patient non-verbal in the ER) Constitutional: Reports: Fever (low grade per [facility] staff) HEENT: Reports: No Symptoms ED EXAM, GENERAL - Physical Exam Exam: See Below Exam Limited By: No Limitations General Appearance: WD/WN, No Apparent Distress, Lethargic Eye Exam: Right Eye: A-V [place], Other (some occular discharge), Bilateral Eye : PERRL Ears: Normal External Exam, Normal Canal, Normal TMs Ear Exam: Bilateral Ear: Auricle Normal, Canal Normal, TM normal Nose: Normal Inspection, Normal Mucosa, No Blood Throat/Mouth: Normal Inspection, Normal Lips, Normal Oropharynx, Normal Voice, No Airway Compromise Head: Atraumatic, Normocephalic Neck: Normal Inspection, Supple, Non-Tender Respiratory/Chest: No Respiratory Distress, Lungs Clear, Normal Breath Sounds, No Accessory Muscle Use Cardiovascular: Regular Rate, Rhythm, No Edema GI/Abdominal: Normal Bowel Sounds, Soft, No Distention Extremities: Normal Inspection, Normal Range of Motion, Non-Tender Neurological: Inattentive, Unresponsive Skin Exam: Warm, Dry, Intact, Normal Color, No Rash Lymphatic: No Adenopathy EKG INTERPRETATION EKG Date: 01/02/18 Time: 10:05 Rhythm: NSR Rate (Beats/Min): 100 [place]: Normal P-Wave: Present QRS: Normal ST-T: Normal QT: Normal Comparison: No Change Course - Vital Signs Text/Narrative:: CXR-poor inspiration, no obvious infiltrates Last Recorded V/S: Last Vital Signs Temp 37.5 C 01/02/18 08:53 Pulse 108 H 01/02/18 10:09 Resp 26 H 01/02/18 08:53 BP 89/58 L 01/02/18 10:09 Pulse Ox 97 01/02/18 08:53 - Orders/Labs/Meds Orders: Active Orders 24 hr Category Date Time Status Cardiac Monitoring [RC] .As Directed Care 01/02/18 08:44 Active Oxygen Therapy, ED [RC] ASDIRECTED Care 01/02/18 08:43 Active Chest 1V Frontal [CR] Stat Exams 01/02/18 08:44 Taken CULTURE BLOOD [BC] Stat Lab 01/02/18 09:00 Received CULTURE BLOOD [BC] Stat Lab 01/02/18 09:10 Received CULTURE URINE [RM] Stat Lab 01/02/18 09:55 Ordered Enoxaparin [Lovenox] Med 01/02/18 10:15 Active 60 mg SUBCUT Q12H Levofloxacin/Dextrose 5%-Water [Levaquin in D5W 750 MG/ Med 01/02/18 09:39 Active 150 ML] 750 mg Premix Bag 1 bag IV ONETIME Sodium Chloride 0.9% [Saline Flush] Med 01/02/18 08:44 Active 10 ml FLUSH ASDIRECTED PRN Saline Lock Insert [OM.PC] Routine Oth 01/02/18 08:44 Ordered EKG 12 Lead [EK] Routine Ther 01/02/18 10:01 Ordered Medication Orders Enoxaparin Sodium (Lovenox) 60 mg SUBCUT Q12H [facility] Last Admin: 01/02/18 10:10 Dose: 60 mg Levofloxacin/Dextrose 750 mg/ (Premix) 150 mls @ 100 mls/hr IV ONETIME ONE Stop: 01/02/18 11:08 Last Admin: 01/02/18 09:42 Dose: 100 mls/hr Sodium Chloride (Saline Flush) 10 ml FLUSH ASDIRECTED PRN PRN Reason: Keep Vein Open Last Admin: 01/02/18 09:23 Dose: 10 ml Labs: Laboratory Tests 01/02/18 01/02/18 01/02/18 Range/Units 09:00 09:00 09:00 WBC 14.8 H (4.5-12.0) X10-3/uL RBC 4.22 (3.23-5.20) x10(6)uL Hgb 12.3 (11.5-15.5) g/dL Hct 36.8 (30.0-51.3) % MCV 87.2 (80-96) fL MCH 29.2 (27.7-33.6) pg MCHC 33.5 (32.2-35.4) g/dL RDW 14.3 (11.5-15.5) % Plt Count 243 (125-369) X10(3)uL Sodium 141 (135-145) mmol/L Potassium 4.2 (3.5-5.3) mmol/L Chloride 103 (100-110) mmol/L Carbon Dioxide 29 (21-32) mmol/L BUN 43 H (7-18) mg/dL Creatinine 2.0 H* (0.55-1.02) mg/dL Est Cr Clr Drug Dosing 16.70 mL/min Estimated GFR (MDRD) 24 L (>60) BUN/Creatinine Ratio 21.5 H (9-20) Glucose 114 (80-116) mg/dL Lactic Acid (0.4-2.2) mmol/L Calcium 9.5 (8.6-10.2) mg/dL Troponin I 1.058 H* (<0.017-0.056) ng/mL Urine Color (YELLOW) Urine Appearance (CLEAR) Urine pH (5.0-6.5) Ur Specific [place] (1.010-1.025) Urine Protein (NEGATIVE) mg/dL Urine Glucose (UA) (NEGATIVE) mg/dL Urine Ketones (NEGATIVE) mg/dL Urine Occult Blood (NEGATIVE) Urine Nitrite (NEGATIVE) Urine Bilirubin (NEGATIVE) Urine Urobilinogen (NEGATIVE) mg/dL Ur Leukocyte Esterase (NEGATIVE) Urine RBC (0) Urine WBC (0) Urine Bacteria (NS) 01/02/18 01/02/18 Range/Units 09:00 09:44 WBC (4.5-12.0) X10-3/uL RBC (3.23-5.20) x10(6)uL Hgb (11.5-15.5) g/dL Hct (30.0-51.3) % MCV (80-96) fL MCH (27.7-33.6) pg MCHC (32.2-35.4) g/dL RDW (11.5-15.5) % Plt Count (125-369) X10(3)uL Sodium (135-145) mmol/L Potassium (3.5-5.3) mmol/L Chloride (100-110) mmol/L Carbon Dioxide (21-32) mmol/L BUN (7-18) mg/dL Creatinine (0.55-1.02) mg/dL Est Cr Clr Drug Dosing mL/min Estimated GFR (MDRD) (>60) BUN/Creatinine Ratio (9-20) Glucose (80-116) mg/dL Lactic Acid 1.3 (0.4-2.2) mmol/L Calcium (8.6-10.2) mg/dL Troponin I (<0.017-0.056) ng/mL Urine Color Yellow (YELLOW) Urine Appearance Slightly cloudy (CLEAR) Urine pH 5.0 (5.0-6.5) Ur Specific [place] 1.010 (1.010-1.025) Urine Protein Negative (NEGATIVE) mg/dL Urine Glucose (UA) Normal (NEGATIVE) mg/dL Urine Ketones Negative (NEGATIVE) mg/dL Urine Occult Blood Moderate H (NEGATIVE) Urine Nitrite Negative (NEGATIVE) Urine Bilirubin Negative (NEGATIVE) Urine Urobilinogen Normal (NEGATIVE) mg/dL Ur Leukocyte Esterase Small H (NEGATIVE) Urine RBC 0-5 (0) Urine WBC Not seen (0) Urine Bacteria Moderate H (NS) Meds: Medications Generic Name Dose Route Start Last Admin Trade Name Freq PRN Reason Stop Dose Admin Enoxaparin Sodium 60 mg 01/02/18 10:15 01/02/18 10:10 Lovenox SUBCUT 60 mg Q12H BRIAN Administration Levofloxacin/Dextrose 750 mg/ 150 mls @ 100 mls/hr 01/02/18 09:39 01/02/18 09 :42 Premix IV 01/02/18 11:08 100 mls/hr ONETIME ONE Administration Sodium Chloride 10 ml 01/02/18 08:44 01/02/18 09:23 Saline Flush FLUSH 10 ml ASDIRECTED PRN Administration Keep Vein Open Discontinued Medications Generic Name Dose Route Start Last Admin Trade Name Freq PRN Reason Stop Dose Admin Acetaminophen 1,000 mg 01/02/18 09:41 01/02/18 09:46 Tylenol Extra Strength PO 01/02/18 09:42 1,000 mg ONETIME ONE Administration Aspirin 324 mg 01/02/18 10:00 01/02/18 10:02 Aspirin PO 01/02/18 10:01 324 mg ONETIME ONE Administration Clopidogrel Bisulfate 300 mg 01/02/18 10:03 01/02/18 10:07 Plavix PO 01/02/18 10:04 300 mg ONETIME ONE Administration Lactated Ringer's 1,000 mls @ 1,000 mls/hr 01/02/18 08:57 01/02/18 09:23 Ringers, Lactated IV 01/02/18 09:56 1,000 mls/hr BOLUS ONE Administration Metoprolol Tartrate 25 mg 01/02/18 10:03 01/02/18 10:09 Lopressor PO 01/02/18 10:04 Not Given ONETIME ONE Metoprolol Tartrate 12.5 mg 01/02/18 10:08 01/02/18 10:09 Lopressor PO 01/02/18 10:09 12.5 mg ONETIME ONE Administration Departure - Departure Time of Disposition: 10:45 Disposition: Admitted As Inpatient 67 Condition: Serious Clinical Impression: [place], Myocardial infarction, Weakness Hypotension Qualifiers: Hypotension type: unspecified hypotension type Qualified Code(s): I95.9 - Hypotension, unspecified Elevated WBC count Qualifiers: Leukocytosis type: unspecified Qualified Code(s): D72.829 - Elevated white blood cell count, unspecified - Discharge Information - My Orders Last 24 Hours: My Active Orders 01/02/18 08:43 Oxygen Therapy, ED [RC] ASDIRECTED 01/02/18 08:44 Cardiac Monitoring [RC] .As Directed Chest 1V Frontal [CR] Stat Sodium Chloride 0.9% [Saline Flush] 10 ml FLUSH ASDIRECTED PRN Saline Lock Insert [OM.PC] Routine 01/02/18 09:00 CULTURE BLOOD [BC] Stat 01/02/18 09:10 CULTURE BLOOD [BC] Stat 01/02/18 09:39 Levofloxacin/Dextrose 5%-Water [Levaquin in D5W 750 MG/150 ML] 750 mg Premix Bag 1 bag IV ONETIME 01/02/18 09:55 CULTURE URINE [RM] Stat 01/02/18 10:01 EKG 12 Lead [EK] Routine 01/02/18 10:15 Enoxaparin [Lovenox] 60 mg SUBCUT Q12H - Assessment/Plan Last 24 Hours: My Active Orders 01/02/18 08:43 Oxygen Therapy, ED [RC] ASDIRECTED 01/02/18 08:44 Cardiac Monitoring [RC] .As Directed Chest 1V Frontal [CR] Stat Sodium Chloride 0.9% [Saline Flush] 10 ml FLUSH ASDIRECTED PRN Saline Lock Insert [OM.PC] Routine 01/02/18 09:00 CULTURE BLOOD [BC] Stat 01/02/18 09:10 CULTURE BLOOD [BC] Stat 01/02/18 09:39 Levofloxacin/Dextrose 5%-Water [Levaquin in D5W 750 MG/150 ML] 750 mg Premix Bag 1 bag IV ONETIME 01/02/18 09:55 CULTURE URINE [RM] Stat 01/02/18 10:01 EKG 12 Lead [EK] Routine 01/02/18 10:15 Enoxaparin [Lovenox] 60 mg SUBCUT Q12H
[2018-01-02] MEDS ORDERED: Lactated Ringers 1,000 ML IV ONE ×2 (08:57→11:14)
[2018-01-02] MEDS ORDERED: Levofloxacin/Dextrose 5%-Water 750 MG in Premix Bag 1 BAG IV ONE (09:39)
[2018-01-02] MEDS ORDERED: Acetaminophen 500 MG Tab PO ONE (09:41)
[2018-01-02] MEDS ORDERED: Aspirin 81 MG Tab.Chew PO ONE (10:00)
[2018-01-02] MEDS ORDERED: Metoprolol Tartrate 25 MG Tab PO ONE ×2 (10:03→10:08)
[2018-01-02] MEDS ORDERED: Clopidogrel 75 MG Tab PO ONE (10:03)
[2018-01-02] MEDS ORDERED: Enoxaparin 60 MG/0.6 ML Syringe SUBCUT SCH (10:15)
[2018-01-02] MEDS ORDERED: Morphine 2 MG/ML Syringe IVPUSH PRN (11:06)
[2018-01-02] MEDS ORDERED: Acetaminophen 325 MG Tab PO PRN (11:06)
[2018-01-02] MEDS ORDERED: Ondansetron 4 MG/2 ML SDV IV PRN (11:06)
[2018-01-02] MEDS ORDERED: Enoxaparin 30 MG/0.3 ML Syringe SUBCUT SCH (11:15)
[2018-01-02] MEDS ORDERED: Famotidine/Normal Saline 20 MG in Premix Bag 1 BAG IV SCH ×2 (11:15→14:00)
[2018-01-02] MEDS ORDERED: Metoprolol Tartrate 25 MG Tab PO SCH (11:15)
--- NOTE | 2018-01-02 12:07 | CR ---
INDICATION: Hypoxia, low grade fever, decreased level of consciousness. CHEST: An AP view of the chest was obtained upright, 01/02/2018, and compared with 03/25/2017 and 04/15/2015, revealing a very poor inspiration on the current study - the patient was unable to take a deep breath, apparently. Overlying EKG leads are noted. The heart appeared enlarged. This is emphasized by the poor inspiration and the AP positioning. Heavy markings are emphasized by the poor inspiration. A definite active infiltrate or effusion was not identified, but is difficult to entirely exclude in the mid to lower lung [place] due to the poor inspiration. This is especially true at the left lung base and posteriorly at the right medial lung base. Full inspiration PA and lateral views of the chest are recommended for further evaluation when clinically possible. 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 The aorta is tortuous and calcified in the arch area. IMPRESSION: No definite acute process, but difficult to exclude patchy bronchopneumonia at the lung bases due to the poor inspiration. When clinically possible, full inspiration PA and lateral views of the chest may be helpful. MTDD
[2018-01-02] MEDS ORDERED: Lactated Ringers 1,000 ML IV SCH (12:30)
--- NOTE | 2018-01-02 19:15 | PCM.HP ---
H&P History of Present Illness - General Date of Service: 01/02/18 Admit Problem/Dx: Admission Diagnosis/Problem Admission Diagnosis/Problem Myocardial infarction Source of Information: Patient, EMS Notes Reviewed, Family - History of Present Illness Initial Comments - Free Text/Narative: 87-year-old female brought in from [facility] because of decreased mentation. Was in her usual state of health over the weekend but when the daughter spoke with the phone yesterday she appeared tired and sounded week. This morning she became more lethargic and delirious. The ER. She has a history of parkinsonism that is stable previously. She was hypotensive when the EMS brought her in. But was he febrile and conversant. On the day after admission she became almost unresponsive with exception of pain in sound - Related Data Allergies/Adverse Reactions: Allergies Allergy/AdvReac Type Severity Reaction Status Date / Time No Known Allergies Allergy Verified 01/02/18 08:50 Home Medications: Home Meds Mirtazapine 30 mg PO BEDTIME 03/25/17 [History] hydrOXYzine HCl [hydrOXYzine] 25 mg PO Q4H PRN 03/25/17 [History] rOPINIRole HCl [Ropinirole ER] 12 mg PO DAILY 03/25/17 [History] rOPINIRole [Requip] 1 mg PO BEDTIME 03/25/17 [History] Lisinopril [Prinivil] 10 mg PO DAILY #30 tablet 05/16/17 [Rx] Acetaminophen [Tylenol] 650 mg PO Q4H PRN 01/02/18 [History] Acetaminophen [Tylenol] 650 mg RECTAL Q4H PRN 01/02/18 [History] Benzonatate [Tessalon Perle] 200 mg PO Q6H PRN 01/02/18 [History] Bisacodyl [Dulcolax] 10 mg RECTAL Q72H PRN 01/02/18 [History] Furosemide [Lasix] 20 mg PO DAILY 01/02/18 [History] Magnesium Hydroxide [Milk of Magnesia] 30 ml PO DAILY PRN 01/02/18 [History] Polyethylene Glycol 3350 [MiraLAX] 8.5 gm PO DAILY 01/02/18 [History] guaiFENesin [Tussin] 200 mg PO Q4H PRN 01/02/18 [History] Past Medical History HEENT History: Reports: Cataract, Impaired Vision, Other (See Below) Other HEENT History: 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 MYOPIA EMILEE. 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 PT HAS RESTLESS LEG SYNDROME Psychiatric History: Reports: Depression Endocrine/Metabolic History: Reports: Obesity/BMI 30+ Immunologic History: Reports: None Oncologic (Cancer) History: Reports: None Dermatologic History: Reports: Other (See Below) Other Dermatologic History: gen itchy - Infectious Disease History Infectious Disease History: Reports: Chicken Pox, Measles, Mumps, Rheumatic Fever Other Infectious Disease History: Hepatitis in High School, unknown what type. - Past Surgical History HEENT Surgical History: Reports: Cataract Surgery, Eye Surgery Other HEENT Surgeries/Procedures: RETINOL ARTERY OCCLUSION RIGHT EYE. Cardiovascular Surgical History: Reports: None Respiratory Surgical History: Reports: None Neurological Surgical History: Reports: None Social & Family History - Family History Family Medical History: Noncontributory - Tobacco Use Smoking Status *Q: Never Smoker Second Hand Smoke Exposure: No - Caffeine Use Caffeine Use: Reports: Coffee Other Caffeine Use: 2 cups Qam - Alcohol Use Days Per Week of Alcohol Use: 4 Number of Drinks Per Day: 1 Total Drinks Per Week: 4 - Recreational Drug Use Recreational Drug Use: No - Living Situation & Occupation Living situation: Reports: Occupation: Retired H&P Review of Systems - Review of Systems: Review Of Systems: ROS reveals no pertinent complaints other than HPI. Exam - Exam Exam: See Below - Vital Signs Vital Signs: Last Vital Signs Temp 98.3 F 01/02/18 17:00 Pulse 74 01/02/18 17:00 Resp 22 H 01/02/18 17:00 BP 94/54 L 01/02/18 17:00 Pulse Ox 90 L 01/02/18 17:00 Weight: 64.552 kg - Exam Quality Assessment: Supplemental Oxygen General: Lethargic, Obtunded HEENT: PERRLA, Hearing Intact, Mucosa Moist & Olivia, Nares Patent, Normal Nasal Septum, Posterior Pharynx Clear, Conjunctiva Clear, EOMI, EACs Clear, TMs Clear Neck: Supple, Trachea Midline, 2 Lungs: Clear to Auscultation, Normal Respiratory Effort Cardiovascular: Regular Rate, Regular Rhythm GI/Abdominal Exam: Normal Bowel Sounds, Soft, Non-Tender, No Organomegaly, No Distention, No Abnormal Bruit, No Mass, Pelvis Stable (Female) Exam: Deferred Rectal (Female) Exam: Deferred Back Exam: Normal Inspection, Full Range of Motion, NT Extremities: Normal Inspection, Normal Range of Motion, Non-Tender, No Pedal Edema, Normal Capillary Refill Skin: Warm, Dry, Intact Neurological: Reflexes Equal Bilateral Psychiatric: No: Alert - Patient Data Lab Results Last 24 hrs: Laboratory Results - last 24 hr 01/02/18 01/02/18 Range/Units 11:50 11:50 Magnesium 1.8 (1.8-2.5) mg/dL Troponin I 1.186 H* (<0.017-0.056) ng/mL Result Diagrams: 01/02/18 09:00 01/02/18 09:00 *Q Meaningful Use (ADM) - VTE *Q VTE Criteria *Q: - Stroke *Q Stroke Criteria *Q: - AMI *Q AMI Criteria *Q: - Problem List (1) Delirium SNOMED Code(s): 2576106 ICD Code: R41.0 - DISORIENTATION, UNSPECIFIED Status: Acute Current Visit : Yes (2) Bacteriuria SNOMED Code(s): 66695274 ICD Code: R82.71 - BACTERIURIA Status: Acute Current Visit: Yes (3) Leukocytosis SNOMED Code(s): 347220529 ICD Code: D72.829 - ELEVATED WHITE BLOOD CELL COUNT, UNSPECIFIED Status: Acute Current Visit: Yes (4) DNR (do not resuscitate) discussion SNOMED Code(s): 322040032 ICD Code: Z71.89 - OTHER SPECIFIED COUNSELING Status: Acute Current Visit : Yes (5) Labile essential hypertension SNOMED Code(s): 779235848 ICD Code: I10 - ESSENTIAL (PRIMARY) HYPERTENSION Status: Acute Current Visit: No (6) Palliative care status SNOMED Code(s): 812098744 ICD Code: Z51.5 - ENCOUNTER FOR PALLIATIVE CARE Status: Acute Current Visit: No (7) Parkinson's disease SNOMED Code(s): 98820993 ICD Code: G20 - PARKINSON'S DISEASE Status: Acute Current Visit: No Problem Details: Continue home meds PT for gait Problem List Initiated/Reviewed/Updated: Yes Orders Last 24hrs: Active Orders 24 hr Category Date Time Status Patient Status [ADT] Routine ADT 01/02/18 11:06 Active Intake and Output [RC] 06,14,22 Care 01/02/18 11:09 Inactive Oxygen Therapy [RC] PRN Care 01/02/18 11:06 Active VTE/DVT Education [RC] Per Unit Routine Care 01/02/18 11:06 Active Vital Signs [RC] Q4H Care 01/02/18 11:06 Active Heart Healthy Diet [DIET] Diet 01/02/18 Lunch Active Acetaminophen [Tylenol] Med 01/02/18 11:06 Active 650 mg PO Q4H PRN Aspirin Med 01/03/18 09:00 Active 81 mg PO DAILY Famotidine/Normal Saline [Famotidine in NS Premix] 20 Med 01/02/18 14:00 Active mg Premix Bag 1 bag IV Q24H Metoprolol Tartrate [Lopressor] Med 01/02/18 21:00 Active 12.5 mg PO Q12H Morphine Med 01/02/18 11:06 Active 2 mg IVPUSH Q2H PRN Ondansetron [Zofran] Med 01/02/18 11:06 Active 4 mg IV Q6H PRN Resuscitation Status Routine Resus Stat 01/02/18 11:06 Ordered Medication Orders Acetaminophen (Tylenol) 650 mg PO Q4H PRN PRN Reason: Pain (Mild 1-3)/fever Aspirin (Aspirin) 81 mg PO DAILY BRIAN Famotidine 20 mg/ Premix 50 mls @ 200 mls/hr IV Q24H BRIAN Last Admin: 01/02/18 14:15 Dose: 200 mls/hr Metoprolol Tartrate (Lopressor) 12.5 mg PO Q12H BRIAN Morphine Sulfate (Morphine) 2 mg IVPUSH Q2H PRN PRN Reason: Pain (severe 7-10) Last Admin: 01/02/18 13:44 Dose: 2 mg Ondansetron HCl (Zofran) 4 mg IV Q6H PRN PRN Reason: Nausea/Vomiting Sodium Chloride (Saline Flush) 10 ml FLUSH ASDIRECTED PRN PRN Reason: Keep Vein Open Last Admin: 01/02/18 09:23 Dose: 10 ml Assessment/Plan Comment:: Patient has a high white count high troponin and labs showing acute renal failure. The chest x-ray is unremarkable. The family would want to respect the patient's wishes and just have her on comfort measures only. We'll consult with hospice care in the morning. At this time will de-escalate care discontinue IV fluids and the lab tests.
[2018-01-02] MEDS: Metoprolol Tartrate 25 MG Tab PO SCH (20:57)
[2018-01-03 08:02] VITALS: BP 136/81
[2018-01-03] MEDS: Metoprolol Tartrate 25 MG Tab PO SCH (08:21)
[2018-01-03] MEDS ORDERED: Aspirin 81 MG Tab.Chew PO SCH (09:00)
--- NOTE | 2018-01-03 09:16 | PCM.PN ---
- General Info Date of Service: 01/03/18 Subjective Update: Patient is noted to be more alert this morning. She complains of no pain and is able to converse. No more fever the blood pressures normalized. - Review of Systems HEENT: Reports: Post Nasal Drip Pulmonary: Reports: No Symptoms Cardiovascular: Reports: No Symptoms Gastrointestinal: Reports: No Symptoms Genitourinary: Reports: No Symptoms - Patient Data Vitals - Most Recent: Last Vital Signs Temp 98 F 01/03/18 07:59 Pulse 96 01/03/18 08:21 Resp 18 01/03/18 07:59 BP 136/81 01/03/18 08:21 Pulse Ox 96 01/03/18 07:59 Weight - Most Recent: 69.003 kg Med Orders - Current: Current Medications Acetaminophen (Tylenol) 650 mg PO Q4H PRN PRN Reason: Pain (Mild 1-3)/fever Last Admin: 01/02/18 20:58 Dose: 650 mg Aspirin (Aspirin) 81 mg PO DAILY [facility] Last Admin: 01/03/18 08:21 Dose: 81 mg Famotidine 20 mg/ Premix 50 mls @ 200 mls/hr IV Q24H [facility] Last Admin: 01/02/18 14:15 Dose: 200 mls/hr Metoprolol Tartrate (Lopressor) 12.5 mg PO Q12H [facility] Last Admin: 01/03/18 08:21 Dose: 12.5 mg Morphine Sulfate (Morphine) 2 mg IVPUSH Q2H PRN PRN Reason: Pain (severe 7-10) Last Admin: 01/02/18 13:44 Dose: 2 mg Ondansetron HCl (Zofran) 4 mg IV Q6H PRN PRN Reason: Nausea/Vomiting Sodium Chloride (Saline Flush) 10 ml FLUSH ASDIRECTED PRN PRN Reason: Keep Vein Open Last Admin: 01/02/18 09:23 Dose: 10 ml Discontinued Medications Acetaminophen (Tylenol Extra Strength) 1,000 mg PO ONETIME ONE Stop: 01/02/18 09:42 Last Admin: 01/02/18 09:46 Dose: 1,000 mg Aspirin (Aspirin) 324 mg PO ONETIME ONE Stop: 01/02/18 10:01 Last Admin: 01/02/18 10:02 Dose: 324 mg Clopidogrel Bisulfate (Plavix) 300 mg PO ONETIME ONE Stop: 01/02/18 10:04 Last Admin: 01/02/18 10:07 Dose: 300 mg Enoxaparin Sodium (Lovenox) 60 mg SUBCUT Q12H [facility] Last Admin: 01/02/18 10:10 Dose: 60 mg Enoxaparin Sodium (Lovenox) 30 mg SUBCUT Q24H [facility] Last Admin: 01/02/18 15:37 Dose: Not Given Lactated Ringer's (Ringers, Lactated) 1,000 mls @ 1,000 mls/hr IV BOLUS ONE Stop: 01/02/18 09:56 Last Admin: 01/02/18 09:23 Dose: 1,000 mls/hr Levofloxacin/Dextrose 750 mg/ (Premix) 150 mls @ 100 mls/hr IV ONETIME ONE Stop: 01/02/18 11:08 Last Admin: 01/02/18 09:42 Dose: 100 mls/hr Lactated Ringer's (Ringers, Lactated) 1,000 mls @ 1,000 mls/hr IV BOLUS ONE Stop: 01/02/18 12:13 Last Admin: 01/02/18 11:20 Dose: 1,000 mls/hr Lactated Ringer's (Ringers, Lactated) 1,000 mls @ 100 mls/hr IV ASDIRECTED [facility] Metoprolol Tartrate (Lopressor) 25 mg PO ONETIME ONE Stop: 01/02/18 10:04 Last Admin: 01/02/18 10:09 Dose: Not Given Metoprolol Tartrate (Lopressor) 12.5 mg PO ONETIME ONE Stop: 01/02/18 10:09 Last Admin: 01/02/18 10:09 Dose: 12.5 mg Metoprolol Tartrate (Lopressor) 12.5 mg PO Q12H [facility] Last Admin: 01/02/18 12:25 Dose: Not Given - Problem List & Annotations (1) Delirium SNOMED Code(s): 5642448 Code(s): R41.0 - DISORIENTATION, UNSPECIFIED Status: Acute Current Visit : Yes (2) Bacteriuria SNOMED Code(s): 40938384 Code(s): R82.71 - BACTERIURIA Status: Acute Current Visit: Yes (3) Leukocytosis SNOMED Code(s): 512120220 Code(s): D72.829 - ELEVATED WHITE BLOOD CELL COUNT, UNSPECIFIED Status: Acute Current Visit: Yes (4) DNR (do not resuscitate) discussion SNOMED Code(s): 573368204 Code(s): Z71.89 - OTHER SPECIFIED COUNSELING Status: Acute Current Visit : Yes (5) Labile essential hypertension SNOMED Code(s): 565987164 Code(s): I10 - ESSENTIAL (PRIMARY) HYPERTENSION Status: Acute Current Visit: No (6) Palliative care status SNOMED Code(s): 496196322 Code(s): Z51.5 - ENCOUNTER FOR PALLIATIVE CARE Status: Acute Current Visit: No (7) Parkinson's disease SNOMED Code(s): 80489904 Code(s): G20 - PARKINSON'S DISEASE Status: Acute Current Visit: No - Problem List Review Problem List Initiated/Reviewed/Updated: Yes - Plan Plan:: Patient is much better today. She is alert oriented 3. Still very weak. According to her wishes and the family's wishes she desires no specific intervention. I will discharge her back to the long-term to continue a regular medications and therapy and if necessary or if so desired to consulted hospice care for comfort measures. Her high troponin be related to non-ST elevation CT, or perhaps to be due to demand ischemia due to dehydration and hypotension. Her urine showed some bacteria but the urine culture still negative I favor "no antibiotics" approach.
--- NOTE | 2018-01-04 03:51 | DISCH ---
DISCHARGE DATE: 01/03/2018 REASON FOR VISIT: Unresponsive, elevated troponin, dehydration, bacteriuria, DNR, parkinsonism. DISCHARGE DIAGNOSES: Unresponsive, elevated troponin, dehydration, bacteriuria, DNR, parkinsonism. CONSULTATIONS: None. BRIEF HISTORY AND HOSPITAL COURSE: This is an 87-year-old female from [facility], was brought in yesterday because of a low blood pressure, altered mentation, and dehydration. Initial labs showed an acute renal insufficiency with a creatinine jumping up from 1 to 2.0. Troponin was also elevated. She was initially given IV fluids and Levaquin and most of the day was lethargic and obtunded, but this morning was more awake and alert. The family did not wish any intervention and wanted just comfort cares, as such the patient will be discharged back to the long term on the same medications. Troponin was high and this could be explained either by dehydration, demand ischemia, or even due to renal insufficiency. The urine culture is growing nothing yet. Chest x-ray was unremarkable. I will send her home on no antibiotics. Please note that I spent more than 35 minutes in the discharge of the patient. /[id number] SANKET/KIM
== END 2018-01-03 11:08 | DRG 948 ==
LOC: FB.ED 08:42 → FB.MS 10:32 → UNDOADMIN 10:32 → FB.MS 11:06 → UNDOADMIN 13:50 → UNDODISIN 01-03 11:08
PROVIDERS: ADMIT Family Medicine; ATTEND Family Medicine
DX: R41.82 Altered mental status, unspecified (principal); I24.8 Other forms of acute ischemic heart disease; I95.9 Hypotension, unspecified; I10 Essential (primary) hypertension; G20 Parkinson's disease; Z66 Do not resuscitate; Z86.73 Personal history of transient ischemic attack (TIA), and cerebral infarction without residual deficits; D72.829 Elevated white blood cell count, unspecified; Z51.5 Encounter for palliative care; R74.8 Abnormal levels of other serum enzymes; R82.71 Bacteriuria; E86.0 Dehydration; G25.81 Restless legs syndrome; E78.00 Pure hypercholesterolemia, unspecified; N28.9 Disorder of kidney and ureter, unspecified; M19.90 Unspecified osteoarthritis, unspecified site; Z87.440 Personal history of urinary (tract) infections; H54.7 Unspecified visual loss
CPT/HCPCS: 36415; 71045; 80048; 81001; 83605; 83735; 84484 ×2; 85027; 87040 ×2; 87086; 93005; 96365; 99285; A9270 ×4; J1650; J1956; J2270; J7050; J7120 ×2; 96366